=== PATIENT | male | born 1960 | race Caucasian/White ===

== ENCOUNTER 2021-01-23 15:42 | Outpatient (REF) | payer OTHER, SELFPAY ==
[2021-01-23 16:32] LABS: Glucose Urine UA >=1000 MG/DL (NEG); Leukocyte Esterase Urine NEG (NEG); Nitrite Urine POS (NEG); PH 5.5 (5.0-8.0); Specific Gravity - Urine 1.025 (1.005-1.025); UACC Culture Trigger YES; Urine Blood 1+ (NEG); Urine Ketones NEG (NEG); Urine Protein TRACE MG/DL (NEG-TRACE)
[2021-01-23 16:33] LABS: Appearance Urine CLEAR; Color Urine YELLOW
[2021-01-23 16:40] LABS: Bacteria Urine 2+ /LPF; RBC Urine 0-2 /HPF (0); WBC Urine 0 /HPF (0-4)
== END 2021-01-23 15:43 | disposition home or self-care (01) ==
LOC: HO.LAB 15:42
PROVIDERS: PCP Internal Medicine; Visit Provider Internal Medicine
DX: R30.0 Dysuria (principal)
CPT/HCPCS: 81001; 81003; 87086; 87088

== ENCOUNTER 2021-07-12 08:10 | Outpatient (REF) | payer OTHER, SELFPAY ==
[2021-07-12 08:31] LABS: MANUAL DIFF FLAG NO
[2021-07-12 09:00] LABS: Basophils Absolute Auto 0.1 X10*3/uL (0.0-0.2); Basophils Percent Auto 0.8 % (0-2); Eosinophils Absolute Auto 0.3 X10*3/uL (0.0-0.4); Eosinophils Percent Auto 2.6 % (0-4); Hemoglobin 14.7 g/dl (14.0-18.0); Imm Gran Abs Auto 0.04 X10*3/uL (0.00-0.03); Imm Gran Pct Auto 0.4 % (0.0-0.4); Lymphocytes Absolute Auto 2.9 X10*3/uL (1.2-4.9); Lymphocytes Percent Auto 29.8 % (20-40); Mean Corpuscular HGB Conc 34.2 g/dl (31.0-36.0); Mean Corpuscular Hemoglobin 29.7 pg (27.0-33.0); Mean Corpuscular Volume 86.9 fL (80-98); Mean Platelet Volume 10.2 fL (9.4-12.4); Monocytes Absolute Auto 0.7 X10*3/uL (0.1-1.2); Monocytes Percent Auto 6.8 % (2-11); Neutrophils Absolute Auto 5.7 X10*3/uL (2.0-8.3); Neutrophils Percent Auto 59.6 % (45-73); Platelet Count 405 X10*3/uL (160-400); Red Blood Count 4.95 X10*6/uL (4.60-5.80); Red Cell Distribution Width 11.7 % (11.0-16.0); White Blood Count 9.6 X10*3/uL (4.8-10.8)
[2021-07-12 10:14] LABS: Alanine Aminotransferase 29 U/L (0-40); Albumin Level 4.3 g/dL (3.5-5.0); Alkaline Phosphatase 96 U/L (39-117); Anion Gap 12 (12-20); Aspartate Amino Transferase 15 U/L (5-37); Bilirubin Total 0.3 mg/dL (0.0-1.0); Blood Urea Nitrogen 9 mg/dL (9-16); Calcium 9.7 mg/dL (8.4-10.2); Carbon Dioxide 28 mmol/L (22-29); Chloride 100 mmol/L (96-108); Cholesterol 273 mg/dL; Estimated Glomerular Filt Rate > 60; Glucose Fasting 321 mg/dL (60-99); HDL Cholesterol 43 mg/dL; LDL Cholesterol Calculated 192 mg/dl; Potassium 4.6 mmol/L (3.3-5.1); Sodium 135 mmol/L (135-145); Triglycerides 194 mg/dL
== END 2021-07-12 08:11 | disposition home or self-care (01) ==
LOC: HO.LAB 08:10
PROVIDERS: PCP Internal Medicine; Visit Provider Internal Medicine
DX: Z00.00 Encounter for general adult medical examination without abnormal findings (principal); E11.9 Type 2 diabetes mellitus without complications
CPT/HCPCS: 36415; 80053; 80061; 85025

== ENCOUNTER 2021-08-20 12:27 | Inpatient (IN) | payer OTHER, SELFPAY ==
--- NOTE | ~2021-08-20 | CT_ITS ---
EXAMINATION: CT ANGIOGRAM OF THE CHEST WITH AND WITHOUT CONTRAST (CT PULMONARY ANGIOGRAM FOR PE) CLINICAL INFORMATION: Reason for Exam Covid pneumonia r/o pe COMPARISON: Chest x-ray 08/20/2021 TECHNIQUE: Prior to contrast administration, noncontrast localization images were obtained. Subsequently, multidetector volumetric imaging was performed from the thoracic inlet to below the diaphragms following the administration of 65 mL Omnipaque 350 intravenous contrast. No contrast reaction reported Sagittal, coronal, and MIP oblique sagittal reformatted images were obtained on the CT workstation, uploaded to PACS, and reviewed. This CT examination was performed using dose optimization techniques as appropriate, variously including the following: *Automated exposure control *Adjustment of mA and/or kV according to patient size (this includes techniques or standardized protocols for targeted exams where dose is matched to indication/reason for exam; i.e. extremities or head) *Use of iterative reconstruction technique Total exam dose-length product 445 mGy-cm FINDINGS: QUALITY OF STUDY/CONTRAST BOLUS: Satisfactory. PULMONARY ARTERIES: No central or segmental pulmonary emboli. THORACIC AORTA: No aneurysm or dissection. LUNG: There is extensive multifocal airspace opacities that have a crazy paving pattern consistent with history of Covid positive. There is a smooth bordered pleural-based nodule along the major fissure in the left lung measuring 9 x 6 mm. Axial image 30/62 series 6, sagittal image 31/128 series 9. This is likely an intrafissural lymph node. PLEURA: No pleural effusion or pneumothorax. MEDIASTINUM: Heart size is normal. No pericardial effusion. Moderate volume of coronary artery calcifications. There is borderline to mildly enlarged lymph nodes in the mediastinum and [place]. Borderline enlarged lymph nodes in the pretracheal retrovascular space, subcarina and AP window. There are larger lymph nodes present in the bilateral hilar regions. Largest lymph nodes measuring up to a diameter about 1.5 cm. Lymph nodes are likely reactive to the airspace disease. No evidence of septal bowing or right heart strain. CHEST WALL/AXILLA: No axillary or internal mammary lymphadenopathy. OSSEOUS STRUCTURES: No acute or suspicious osseous abnormality. UPPER ABDOMEN: Unremarkable. No reflux of contrast into the hepatic veins to suggest elevated right heart pressures. CT/CT angio chest PE protocol IMPRESSION: 1. No evidence of pulmonary embolism. 2. Multifocal airspace disease consistent with history of Covid positive. Mediastinal and hilar lymphadenopathy which is likely reactive. Probable intrafissural lymph node in the left lung as well. Consider follow-up CAT scan in 3 months to assess the left lung nodule. 2017 Fleischner Society Recommendations for Lung Nodule(s): Follow-Up based on size (average of long- and short-axis diameters). Use most suspicious nodule for followup. Single Solid lung nodule > 8 mm: Consider non-contrast Chest CT at 3 months, PET/CT, or tissue sampling. These guidelines do not apply to patients younger than 35 years, immunocompromised patients, and patients with cancer. F/u in patients with significant comorbidities as clinically warranted. For lung cancer screening, adhere to Lung-RADS guidelines. Reference: Radiology. 2017 [place]; 284(1):228-243 VTE: Negative.
--- NOTE | ~2021-08-20 | XR_ITS ---
EXAMINATION: XR chest 1V CLINICAL INFORMATION: Shortness of breath COMPARISON: None TECHNIQUE: XR chest 1V Tubes and lines: None Lungs and pleura: Diffuse increased interstitial lung marking and peribronchial cuffing might be a small airway disease such as bronchiolitis or interstitial pneumonitis, versus interstitial lung disease versus interstitial edema. No dense focal consolidation pneumonia. Heart and mediastinum: The mediastinum is within normal limits.. Bones/soft tissue: Skeletal structures included are normal for patient's age. XR/XR chest 1V IMPRESSION: Diffuse increased interstitial lung marking and peribronchial cuffing might be a small airway disease such as bronchiolitis or interstitial pneumonitis, versus interstitial lung disease versus interstitial edema. No dense focal consolidation pneumonia. No significant dense lobar consolidation lobar pneumonia or pleural effusion present.
[2021-08-20 13:24] VITALS: BP 113/81; PULSE 123; RESP 18; TEMP 36.8; O2SAT 90; BMI 44.2
--- NOTE | 2021-08-20 17:49 | ECG_ITS ---
Test Reason : SOB Blood Pressure : / mmHG Vent. Rate : 128 BPM Atrial Rate : 128 BPM P-R Int : 154 ms QRS Dur : 078 ms QT Int : 286 ms P-R-T Axes : 035 -06 033 degrees QTc Int : 417 ms Sinus tachycardia Low voltage QRS Nonspecific ST abnormality Abnormal ECG When compared with ECG of 09-NOV-2018 15:20, Vent. rate has increased BY 54 BPM Nonspecific T wave abnormality no longer evident in Anterior leads Nonspecific ST abnormality is new Referred By: Torrie Potter Electronically Signed By:DAIJA CARRIZALES MD
--- NOTE | 2021-08-20 18:27 | ED.SOB ---
HPI - SOB/Dyspnea General Chief Complaint: Dyspnea Stated Complaint: covid + , diff breathing Time Seen by Provider: 08/20/21 17:48 Source: patient Mode of arrival: ambulatory Limitations: no limitations History of Present Illness HPI Narrative: Patient with history of hypertension no known lung condition not vaccinated against COVID-19 been sick for last 10 days tested positive for COVID 8 days ago been getting more short of breath for last 4 days was saturating 90% at room air on arrival poor oral intake feel weak and tired tachycardic on arrival with heart rate of 123 no loss of taste sensation dry cough mostly feels very shaky and dizzy Related Data Home Medications Medication Instructions Recorded Confirmed amlodipine 10 mg tablet 10 mg PO BEDTIME 08/20/21 08/20/21 metoprolol tartrate 100 mg tablet 100 mg PO BEDTIME 08/20/21 08/20/21 Allergies Allergy/AdvReac Type Severity Reaction Status Date / Time chlorthalidone Allergy Unknown Rash Verified 08/20/21 13:24 lisinopril Allergy Unknown Cough, Verified 08/20/21 13:24 hives No Known Allergies Allergy Verified 08/20/21 13:24 Review of Systems Review of Systems: Yes all other systems are reviewed and are negative [facility] Past Medical History Medical History HTN (hypertension) Social History Social History Alcohol intake: never Patient Tobacco Use Status: Never used Tobacco Advance Directives: No Advance Directives Information Provided: No Physical Exam Vital Signs: Vital Signs: Last Vital Signs Temp 97.9 F 08/21/21 00:00 Pulse 113 H 08/21/21 00:00 Resp 20 08/21/21 00:00 BP 116/72 08/21/21 00:00 Pulse Ox 92 08/21/21 00:00 Body Mass Index 44.2 Appearance: Alert. Oriented X3. No acute distress. Dry cough looks exhausted Eyes: No pallor or icterus ENT: Pharynx normal. Oral Mucosa moist Neck: Normal inspection. Neck supple. CVS: Normal heart rate and rhythm. Pulses normal. Respiratory: No respiratory distress. Equal air entry bilateral, no wheezing/rales/rhonchi Abdomen: Soft and nontender. Bowel sounds are present, no mass palpable, Skin: Skin warm and dry. Normal skin color. Normal skin turgor. Extremities: No lower extremity edema. No calf tenderness Neuro: Oriented X 3. MDM - SOB/Dyspnea Lab Data Attestation: I reviewed the patient's lab results. Result diagrams: 08/20/21 19:12 08/20/21 19:09 Labs: Lab Results 08/20/21 08/20/21 08/20/21 Range/Units 19:09 19:09 19:11 WBC (4.8-10.8) X10*3/uL RBC (4.60-5.80) X10*6/uL Hgb (14.0-18.0) g/dl Hct (42.0-52.0) % MCV (80.0-98.0) fL MCH (27.0-33.0) pg MCHC (31.0-36.0) g/dl RDW (11.0-16.0) % Plt Count (160-400) X10*3/uL MPV (9.4-12.4) fL Immature Gran % (Auto) Neut % (Auto) Lymph % (Auto) [place] % (Auto) Eos % (Auto) Baso % (Auto) Lymph # (Auto) [place] # (Auto) Eos # (Auto) Baso # (Auto) Abs Immat Gran (auto) Absolute Neuts (auto) Absolute Nucleated RBC (0.0-0.012) X10*3/uL Nucleated RBC % (auto) (0.0-0.2) /100WBC Neutrophils % (Manual) (45-73) % Band Neutrophils % (3-5) % Lymphocytes % (Manual) (20-40) % Atypical Lymphs % (Man) (0-6) % Monocytes % (Manual) (2-11) % Abs Neuts (Manual) (2.0-8.3) X10*3/uL Lymphocytes # (Manual) (1.2-4.9) X10*3/uL Atyp Lymphs # (Manual) x10*3/uL Monocytes # (Manual) (0.1-1.2) X10*3/uL Toxic Vacuolation Platelet Estimate (NORMAL) Large Platelets Plt Morphology Comment RBC Morphology Polychromasia /OIF Shawn Cells /OIF Smear Tech's Comments D-Dimer High Sensitivty 213 NG/ML VBG pH (7.32-7.43) VBG pCO2 mmHg VBG pO2 mmHg VBG HCO3 (22-26) mmol/L VBG O2 Saturation % VBG Base Excess mmol/L Sodium 132 L (135-145) mmol/L Potassium 4.5 (3.3-5.1) mmol/L Chloride 97 (96-108) mmol/L Carbon Dioxide 21 L (22-29) mmol/L Anion Gap 19 (12-20) BUN 15 D (9-16) mg/dL Creatinine 1.00 (0.5-1.4) mg/dL Estim Creat Clear Calc 88.0 Estimated GFR > 60 Random Glucose 277 H (60-115) mg/dL Lactic Acid 1.9 (0.5-2.0) mmol/L Calcium 8.7 D (8.4-10.2) mg/dL Magnesium 2.3 (1.6-2.6) mg/dL Ferritin 2431 H (20-250) ng/mL Total Bilirubin 0.4 (0.0-1.0) mg/dL Direct Bilirubin 0.2 (0.0-0.5) mg/dL AST 36 D (5-37) U/L ALT 35 (0-40) U/L Alkaline Phosphatase 69 D (39-117) U/L Lactate Dehydrogenase 423 H (118-273) U/L Total Creatine Kinase 43 (38-174) U/L Troponin I High Sens (<3.5-35.0) ng/L C-Reactive Protein 5.46 H (< or = 0.50) mg/dL B-Natriuretic Peptide (<100) pg/mL Total Protein 7.0 (6.5-8.0) g/dL Albumin 3.9 (3.5-5.0) g/dL Lipase 34 (8-78) U/L COVID-19 (LEONEL) (Negative) COVID-19 Clin Com 08/20/21 08/20/21 08/20/21 Range/Units 19:11 19:12 19:12 WBC 8.3 (4.8-10.8) X10*3/uL RBC 5.68 (4.60-5.80) X10*6/uL Hgb 16.6 (14.0-18.0) g/dl Hct 48.6 (42.0-52.0) % MCV 85.6 (80.0-98.0) fL MCH 29.2 (27.0-33.0) pg MCHC 34.2 (31.0-36.0) g/dl RDW 11.6 (11.0-16.0) % Plt Count 369 (160-400) X10*3/uL MPV 10.0 (9.4-12.4) fL Immature Gran % (Auto) Cancelled Neut % (Auto) Cancelled Lymph % (Auto) Cancelled [place] % (Auto) Cancelled Eos % (Auto) Cancelled Baso % (Auto) Cancelled Lymph # (Auto) Cancelled [place] # (Auto) Cancelled Eos # (Auto) Cancelled Baso # (Auto) Cancelled Abs Immat Gran (auto) Cancelled Absolute Neuts (auto) Cancelled Absolute Nucleated RBC 0.000 (0.0-0.012) X10*3/uL Nucleated RBC % (auto) 0.0 (0.0-0.2) /100WBC Neutrophils % (Manual) 76 H (45-73) % Band Neutrophils % 1 L (3-5) % Lymphocytes % (Manual) 10 L (20-40) % Atypical Lymphs % (Man) 6 (0-6) % Monocytes % (Manual) 7 (2-11) % Abs Neuts (Manual) 6.4 (2.0-8.3) X10*3/uL Lymphocytes # (Manual) 0.8 L (1.2-4.9) X10*3/uL Atyp Lymphs # (Manual) 0.5 x10*3/uL Monocytes # (Manual) 0.6 (0.1-1.2) X10*3/uL Toxic Vacuolation PRESENT Platelet Estimate SLIGHTLY INCREASED (NORMAL) Large Platelets PRESENT Plt Morphology Comment NOTED RBC Morphology NOTED Polychromasia 1+ (0-2) /OIF Shawn Cells 1+ (0-2) /OIF Smear Tech's Comments MANUAL DIFF D-Dimer High Sensitivty NG/ML VBG pH (7.32-7.43) VBG pCO2 mmHg VBG pO2 mmHg VBG HCO3 (22-26) mmol/L VBG O2 Saturation % VBG Base Excess mmol/L Sodium (135-145) mmol/L Potassium (3.3-5.1) mmol/L Chloride (96-108) mmol/L Carbon Dioxide (22-29) mmol/L Anion Gap (12-20) BUN (9-16) mg/dL Creatinine (0.5-1.4) mg/dL Estim Creat Clear Calc Estimated GFR Random Glucose (60-115) mg/dL Lactic Acid (0.5-2.0) mmol/L Calcium (8.4-10.2) mg/dL Magnesium (1.6-2.6) mg/dL Ferritin (20-250) ng/mL Total Bilirubin (0.0-1.0) mg/dL Direct Bilirubin (0.0-0.5) mg/dL AST (5-37) U/L ALT (0-40) U/L Alkaline Phosphatase (39-117) U/L Lactate Dehydrogenase (118-273) U/L Total Creatine Kinase (38-174) U/L Troponin I High Sens 3.9 (<3.5-35.0) ng/L C-Reactive Protein (< or = 0.50) mg/dL B-Natriuretic Peptide 15 (<100) pg/mL Total Protein (6.5-8.0) g/dL Albumin (3.5-5.0) g/dL Lipase (8-78) U/L COVID-19 (LEONEL) (Negative) COVID-19 Clin Com 08/20/21 08/20/21 Range/Units 19:12 19:20 WBC (4.8-10.8) X10*3/uL RBC (4.60-5.80) X10*6/uL Hgb (14.0-18.0) g/dl Hct (42.0-52.0) % MCV (80.0-98.0) fL MCH (27.0-33.0) pg MCHC (31.0-36.0) g/dl RDW (11.0-16.0) % Plt Count (160-400) X10*3/uL MPV (9.4-12.4) fL Immature Gran % (Auto) Neut % (Auto) Lymph % (Auto) [place] % (Auto) Eos % (Auto) Baso % (Auto) Lymph # (Auto) [place] # (Auto) Eos # (Auto) Baso # (Auto) Abs Immat Gran (auto) Absolute Neuts (auto) Absolute Nucleated RBC (0.0-0.012) X10*3/uL Nucleated RBC % (auto) (0.0-0.2) /100WBC Neutrophils % (Manual) (45-73) % Band Neutrophils % (3-5) % Lymphocytes % (Manual) (20-40) % Atypical Lymphs % (Man) (0-6) % Monocytes % (Manual) (2-11) % Abs Neuts (Manual) (2.0-8.3) X10*3/uL Lymphocytes # (Manual) (1.2-4.9) X10*3/uL Atyp Lymphs # (Manual) x10*3/uL Monocytes # (Manual) (0.1-1.2) X10*3/uL Toxic Vacuolation Platelet Estimate (NORMAL) Large Platelets Plt Morphology Comment RBC Morphology Polychromasia /OIF [place] Cells /OIF Smear Tech's Comments D-Dimer High Sensitivty NG/ML VBG pH 7.39 (7.32-7.43) VBG pCO2 36 mmHg VBG pO2 35 mmHg VBG HCO3 23 (22-26) mmol/L VBG O2 Saturation 48.0 % VBG Base Excess -1.3 mmol/L Sodium (135-145) mmol/L Potassium (3.3-5.1) mmol/L Chloride (96-108) mmol/L Carbon Dioxide (22-29) mmol/L Anion Gap (12-20) BUN (9-16) mg/dL Creatinine (0.5-1.4) mg/dL Estim Creat Clear Calc Estimated GFR Random Glucose (60-115) mg/dL Lactic Acid (0.5-2.0) mmol/L Calcium (8.4-10.2) mg/dL Magnesium (1.6-2.6) mg/dL Ferritin (20-250) ng/mL Total Bilirubin (0.0-1.0) mg/dL Direct Bilirubin (0.0-0.5) mg/dL AST (5-37) U/L ALT (0-40) U/L Alkaline Phosphatase (39-117) U/L Lactate Dehydrogenase (118-273) U/L Total Creatine Kinase (38-174) U/L Troponin I High Sens (<3.5-35.0) ng/L C-Reactive Protein (< or = 0.50) mg/dL B-Natriuretic Peptide (<100) pg/mL Total Protein (6.5-8.0) g/dL Albumin (3.5-5.0) g/dL Lipase (8-78) U/L COVID-19 (LEONEL) Positive A (Negative) COVID-19 Clin Com See Note Imaging Data CT scan - chest: My impression: CT/CT angio chest PE protocol IMPRESSION: ? 1. No evidence of pulmonary embolism. 2. Multifocal airspace disease consistent with history of Covid positive. Mediastinal and hilar lymphadenopathy which is likely reactive. Probable intrafissural lymph node in the left lung as well. Consider follow-up CAT scan in 3 months to assess the left lung nodule. ? 2017 Fleischner Society Recommendations for Lung Nodule(s): Follow-Up based on size (average of long- and short-axis diameters). Use most suspicious nodule for followup. ? Single Solid lung nodule > 8 mm:? Consider? non-contrast Chest CT at 3 months, PET/CT, or tissue sampling.? ? These guidelines do not apply to patients younger than 35 years, immunocompromised patients, and patients with cancer. F/u in patients with significant comorbidities as clinically warranted. For lung cancer screening, adhere to Lung-RADS guidelines.? ECG Data Attestation: I personally reviewed and interpreted this ECG as follows: Interpretation: Sinus tachycardia with heart rate of 128 beats per minute normal axis no acute ischemic changes impression sinus tachycardia Discharge Plan Discharge Clinical Impression: Pneumonia due to COVID-19 virus, Hypoxia Patient Disposition: Admitted As Inpatient
[2021-08-20 18:50] VITALS: BP 143/92; PULSE 124; RESP 16; O2SAT 94
[2021-08-20 19:26] LABS: VBG Base Excess -1.3 mmol/L; VBG HCO3 23 mmol/L (22-26); VBG pCO2 36 mmHg; VBG pH 7.39 (7.32-7.43); VBG pO2 35 mmHg
[2021-08-20 19:27] LABS: Venous Blood Gas Refer to POC result
[2021-08-20 19:27] LABS: Hematocrit 48.6 % (42.0-52.0); Hemoglobin 16.6 g/dl (14.0-18.0); Mean Corpuscular HGB Conc 34.2 g/dl (31.0-36.0); Mean Corpuscular Hemoglobin 29.2 pg (27.0-33.0); Mean Corpuscular Volume 85.6 fL (80.0-98.0); Platelet Count 369 X10*3/uL (160-400); Red Blood Count 5.68 X10*6/uL (4.60-5.80); Red Cell Distribution Width 11.6 % (11.0-16.0); White Blood Count 8.3 X10*3/uL (4.8-10.8)
[2021-08-20 19:28] LABS: D Dimer High Sensitivity 213 NG/ML
[2021-08-20 19:34] LABS: Lactic Acid 1.9 mmol/L (0.5-2.0)
[2021-08-20 19:35] LABS: COVID-19 Test Positive (Negative)
[2021-08-20 19:39] LABS: Alanine Aminotransferase 35 U/L (0-40); Albumin Level 3.9 g/dL (3.5-5.0); Alkaline Phosphatase 69 U/L (39-117); Anion Gap 19 (12-20); Aspartate Amino Transferase 36 U/L (5-37); Bilirubin Direct 0.2 mg/dL (0.0-0.5); Bilirubin Total 0.4 mg/dL (0.0-1.0); Blood Urea Nitrogen 15 mg/dL (9-16); C Reactive Protein 5.46 mg/dL (< or = 0.50); Calcium 8.7 mg/dL (8.4-10.2); Carbon Dioxide 21 mmol/L (22-29); Chloride 97 mmol/L (96-108); Estimated Glomerular Filt Rate > 60; Glucose Random 277 mg/dL (60-115); Lipase 34 U/L (8-78); Magnesium 2.3 mg/dL (1.6-2.6); Potassium 4.5 mmol/L (3.3-5.1); Sodium 132 mmol/L (135-145)
[2021-08-20 19:42] LABS: B Type Natriuretic Peptide 15 pg/mL (<100)
[2021-08-20 19:43] LABS: Troponin-I High Sensitivity 3.9 ng/L (<3.5-35.0)
[2021-08-20 19:50] LABS: Lactate Dehydrogenase 423 U/L (118-273)
[2021-08-20 19:59] LABS: SLIDE REVIEW MANUAL DIFF
[2021-08-20 20:02] LABS: Atypical Lymph Absolute Manual 0.5 x10*3/uL; Atypical Lymphs Percent Manual 6 % (0-6); Band Neutrophils Percent 1 % (3-5); Lymphocytes Absolute Manual 0.8 X10*3/uL (1.2-4.9); Lymphocytes Percent Manual 10 % (20-40); Monocytes Absolute Manual 0.6 X10*3/uL (0.1-1.2); Monocytes Percent Manual 7 % (2-11); Neutrophils Absolute Manual 6.4 X10*3/uL (2.0-8.3); Neutrophils Percent Manual 76 % (45-73)
[2021-08-20 20:03] LABS: Burr Cells 1+ (0-2) /OIF; Large Platelet PRESENT; Platelet Estimate SLIGHTLY INCREASED (NORMAL); Platelet Morphology Comment NOTED; Polychromasia 1+ (0-2) /OIF; RBC Morphology NOTED
[2021-08-20 20:06] LABS: Toxic Vacuolation PRESENT
[2021-08-20] MEDS: iohexoL 350 MG/ML 100 ML INFUS..BTL 65 ML IV (20:22)
[2021-08-20 20:36] LABS: Ferritin 2431 ng/mL (20-250)
[2021-08-20 21:21] VITALS: BP 143/92; PULSE 111; O2SAT 90
[2021-08-20] MEDS: dexAMETHasone sod phosphate 10 MG/ML VIAL IVPUSH (21:27)
[2021-08-20] MEDS: 0.9 % Sodium Chloride 1,000 ML 999 ML IVCONT (21:28)
[2021-08-20] MEDS: cefTRIAXone sodium 1 GM in 0.9 % Sodium Chloride 50 ML IV (22:35)
[2021-08-20 22:55] VITALS: BP 135/89; PULSE 109; RESP 15; O2SAT 95
[2021-08-20] MEDS: Azithromycin 500 MG in 0.9 % Sodium Chloride 250 ML 125 MG IV (22:56)
--- NOTE | 2021-08-20 23:05 | PM.IMHP ---
History of Present Illness Date of Service: 08/20/21 Chief Complaint: SOB 66-year-old male with a past medical history of hypertension presented to the hospital with a chief complaint of shortness of breath and generalized weakness. Patient reported that about a week ago he was diagnosed with COVID-19; mentioned that he was not COVID vaccinated. Since he was diagnosed with the COVID 19 mentioned that he has been having shortness of breath which has been gradually worsening and also complains of generalized weakness; denies any loss of sense of smell of; mentions he had metabolic testing is wall; denies any nausea vomiting or diarrhea. Denies any cough or sputum production. Denies any chest pain palpitations lightheadedness or dizziness. Review of all other systems is negative except mentioned above ER course: Per ER team patient saturating 92% on 4 L of oxygen; CT chest showed no evidence of pulmonary embolism but noted multifocal airspace disease consistent with COVID positive. Hilar lymphadenopathy likely reactive. Given ceftriaxone azithromycin. Admitted for further management. [facility] Medical History HTN (hypertension) Pertinent family history: Reviewed Social History Alcohol intake: never Patient Tobacco Use Status: Never used Tobacco Advance Directives: No Advance Directives Information Provided: No Meds Allergies Allergy/AdvReac Type Severity Reaction Status Date / Time chlorthalidone Allergy Unknown Rash Verified 08/20/21 13:24 lisinopril Allergy Unknown Cough, Verified 08/20/21 13:24 hives No Known Allergies Allergy Verified 08/20/21 13:24 Active Medications: Current Medications Dexamethasone (Dexamethasone 6 Mg Tablet) 6 mg PO DAILY ERWIN Azithromycin 500 mg/ Sodium (Chloride) 250 mls @ 125 mls/hr IV ONCE ONE Stop: 08/20/21 23:19 Last Admin: 08/20/21 22:56 Dose: 125 mls/hr Documented by: Pharmacy Consult (Consult Rx Perform Med Rec) 1 each MISCELLANE ONCE PRN PRN Reason: Consult order Home Medications Medication Instructions Recorded Confirmed Last Taken Type amlodipine 10 mg tablet 10 mg PO BEDTIME 08/20/21 08/20/21 08/19/21 History metoprolol tartrate 100 mg tablet 100 mg PO BEDTIME 08/20/21 08/20/2108/19/21 History Physical Exam Vital Signs and Narrative: Vital Signs: Last Vital Signs Temp 98.3 F 08/20/21 13:24 Pulse 109 H 08/20/21 22:55 Resp 15 08/20/21 22:55 BP 135/89 08/20/21 22:55 Pulse Ox 95 08/20/21 22:55 Body Mass Index 44.2 Gen: Appears be in no acute distress. Speaks in full sentences. On supplemental oxygen. HEENT: NCAT, Moist mucosa. Pulmonary: Coarse breath sounds, fair air entry CVS: Normal S1-S2 Abdomen: BS+, Soft, Nontender Extremities: Warm well perfused Neuro: Alert and awake. Results Labs CBC and Chem 7: 08/21/21 05:38 08/21/21 05:38 Labs: Laboratory Results - last 24 hr 08/20/21 08/20/21 08/20/21 19:09 19:09 19:11 MCV MCH MCHC RDW Plt Count MPV Immature Gran % (Auto) Neut % (Auto) Lymph % (Auto) [place] % (Auto) Eos % (Auto) Baso % (Auto) Lymph # (Auto) [place] # (Auto) Eos # (Auto) Baso # (Auto) Abs Immat Gran (auto) Absolute Neuts (auto) Absolute Nucleated RBC Nucleated RBC % (auto) Neutrophils % (Manual) Band Neutrophils % Lymphocytes % (Manual) Atypical Lymphs % (Man) Monocytes % (Manual) Abs Neuts (Manual) Lymphocytes # (Manual) Atyp Lymphs # (Manual) Monocytes # (Manual) Toxic Vacuolation Platelet Estimate Large Platelets Plt Morphology Comment RBC Morphology Polychromasia Shawn Cells Smear Tech's Comments D-Dimer High Sensitivty 213 VBG pH VBG pCO2 VBG pO2 VBG HCO3 VBG O2 Saturation VBG Base Excess Anion Gap 19 Estim Creat Clear Calc 88.0 Estimated GFR > 60 Random Glucose 277 H Lactic Acid 1.9 Calcium 8.7 D Magnesium 2.3 Ferritin 2431 H Total Bilirubin 0.4 Direct Bilirubin 0.2 AST 36 D ALT 35 Alkaline Phosphatase 69 D Lactate Dehydrogenase 423 H Total Creatine Kinase 43 Troponin I High Sens C-Reactive Protein 5.46 H B-Natriuretic Peptide Total Protein 7.0 Albumin 3.9 Lipase 34 COVID-19 (LEONEL) COVID-19 Clin Com 08/20/21 08/20/2121 19:11 19:12 19:12 MCV 85.6 MCH 29.2 MCHC 34.2 RDW 11.6 Plt Count 369 MPV 10.0 Immature Gran % (Auto) Cancelled Neut % (Auto) Cancelled Lymph % (Auto) Cancelled [place] % (Auto) Cancelled Eos % (Auto) Cancelled Baso % (Auto) Cancelled Lymph # (Auto) Cancelled [place] # (Auto) Cancelled Eos # (Auto) Cancelled Baso # (Auto) Cancelled Abs Immat Gran (auto) Cancelled Absolute Neuts (auto) Cancelled Absolute Nucleated RBC 0.000 Nucleated RBC % (auto) 0.0 Neutrophils % (Manual) 76 H Band Neutrophils % 1 L Lymphocytes % (Manual) 10 L Atypical Lymphs % (Man) 6 Monocytes % (Manual) 7 Abs Neuts (Manual) 6.4 Lymphocytes # (Manual) 0.8 L Atyp Lymphs # (Manual) 0.5 Monocytes # (Manual) 0.6 Toxic Vacuolation PRESENT Platelet Estimate SLIGHTLY INCREASED Large Platelets PRESENT Plt Morphology Comment NOTED RBC Morphology NOTED Polychromasia 1+ (0-2) [place] Cells 1+ (0-2) Smear Tech's Comments MANUAL DIFF D-Dimer High Sensitivty VBG pH VBG pCO2 VBG pO2 VBG HCO3 VBG O2 Saturation VBG Base Excess Anion Gap Estim Creat Clear Calc Estimated GFR Random Glucose Lactic Acid Calcium Magnesium Ferritin Total Bilirubin Direct Bilirubin AST ALT Alkaline Phosphatase Lactate Dehydrogenase Total Creatine Kinase Troponin I High Sens 3.9 C-Reactive Protein B-Natriuretic Peptide 15 Total Protein Albumin Lipase COVID-19 (LEONEL) COVID-19 Clin Com 08/20/21 08/20/21 19:12 19:20 MCV MCH MCHC RDW Plt Count MPV Immature Gran % (Auto) Neut % (Auto) Lymph % (Auto) [place] % (Auto) Eos % (Auto) Baso % (Auto) Lymph # (Auto) [place] # (Auto) Eos # (Auto) Baso # (Auto) Abs Immat Gran (auto) Absolute Neuts (auto) Absolute Nucleated RBC Nucleated RBC % (auto) Neutrophils % (Manual) Band Neutrophils % Lymphocytes % (Manual) Atypical Lymphs % (Man) Monocytes % (Manual) Abs Neuts (Manual) Lymphocytes # (Manual) Atyp Lymphs # (Manual) Monocytes # (Manual) Toxic Vacuolation Platelet Estimate Large Platelets Plt Morphology Comment RBC Morphology Polychromasia [place] Cells Smear Tech's Comments D-Dimer High Sensitivty VBG pH 7.39 VBG pCO2 36 VBG pO2 35 VBG HCO3 23 VBG O2 Saturation 48.0 VBG Base Excess -1.3 Anion Gap Estim Creat Clear Calc Estimated GFR Random Glucose Lactic Acid Calcium Magnesium Ferritin Total Bilirubin Direct Bilirubin AST ALT Alkaline Phosphatase Lactate Dehydrogenase Total Creatine Kinase Troponin I High Sens C-Reactive Protein B-Natriuretic Peptide Total Protein Albumin Lipase COVID-19 (LEONEL) Positive A COVID-19 Clin Com See Note Imaging Radiologist's Impressions: Impressions Chest X-Ray 08/20/21 17:19 IMPRESSION: Diffuse increased interstitial lung marking and peribronchial cuffing might be a small airway disease such as bronchiolitis or interstitial pneumonitis, versus interstitial lung disease versus interstitial edema. No dense focal consolidation pneumonia. No significant dense lobar consolidation lobar pneumonia or pleural effusion present. Chest CTA 08/20/21 18:32 IMPRESSION: 1. No evidence of pulmonary embolism. 2. Multifocal airspace disease consistent with history of Covid positive. Mediastinal and hilar lymphadenopathy which is likely reactive. Probable intrafissural lymph node in the left lung as well. Consider follow-up CAT scan in 3 months to assess the left lung nodule. 2017 Fleischner Society Recommendations for Lung Nodule(s): Follow-Up based on size (average of long- and short-axis diameters). Use most suspicious nodule for followup. Single Solid lung nodule > 8 mm: Consider non-contrast Chest CT at 3 months, PET/CT, or tissue sampling. These guidelines do not apply to patients younger than 35 years, immunocompromised patients, and patients with cancer. F/u in patients with significant comorbidities as clinically warranted. For lung cancer screening, adhere to Lung-RADS guidelines. Reference: Radiology. 2017 Mar; 284(1):228-243 VTE: Negative. Assessment and Plan (1) Pneumonia due to COVID-19 virus: Status: Acute (2) Hypoxia: Status: Acute 61-year-old male with a past medical history of hypertension presented to the hospital with a chief complaint of shortness of breath. Patient was diagnosed COVID-19 about a week ago. Noted to have COVID-[address] scan. Admitted for further management. Acute hypoxic respiratory failure: In the setting of COVID-19 pneumonia. Patient on supplemental oxygen at 4 L. Not in respiratory distress. Albuterol inhaler p.r.n.. COVID-19 pneumonia: Continue ceftriaxone azithromycin. Continue dexamethasone Infectious Disease consult for further recommendations Hyperglycemia: likely steroid induced; hba1c pending; insulin sliding scale. History of hypertension: Hold home amlodipine. Continue home metoprolol. Monitor blood pressure closely. Pulmonary nodule: Outpatient follow-up with the PCP for surveillance in CT scans. DVT prophylaxis: Lovenox Code status: Full code Quality Stroke Does the patient have a stroke diagnosis?: No VTE Prior VTE?: No VTE Risk Level:: Medical - moderate - high VTE Device Contraindication: Treatment Not Indicated VTE Drug Contraindication: N/A - Med Ordered
[2021-08-21] VITALS (12 sets, daily range): BP systolic 116–142; BP diastolic 55–91; PULSE 82–133; RESP 15–22; TEMP 36.4–37; O2SAT 85–95
[2021-08-21] MEDS: Enoxaparin Sodium 40 MG/0.4 ML SYRINGE SUBCUT (01:32)
[2021-08-21] MEDS: 0.9 % Sodium Chloride Flush 3 ML SYRINGE IVFLUSH ×2 (01:33→10:26)
--- NOTE | 2021-08-21 05:30 | PC.NURSE ---
Pt disconnected from monitor by [facility] to allow the pt to ambulate to bathroom. Pt was instructed to ring upon return but did not. This RN to bedside to find patient laying in stretcher awake, alert and without distress noted. pt noted to be without NC in place as it had falled; O2 sat 88% on room air. Pt denies pain/discomfort at this time and although he acknowledges weakness he reports that he feels better than earlier but denies being at his baseline. Pt with 2LPM NC applied with an O2 saturation noted to be between 92-93%. Dr Hurd contacted via [facility] to relay results to determine if pt should be on more O2 via NC as pt previously on 4lPM since arrival; responded it is okay for the patient to remain at the 2lpm via NC
[2021-08-21 06:21] LABS: Hematocrit 43.2 % (42.0-52.0); Hemoglobin 14.7 g/dl (14.0-18.0); Mean Corpuscular Hemoglobin 29.2 pg (27.0-33.0); Mean Corpuscular Volume 85.9 fL (80.0-98.0); Platelet Count 367 X10*3/uL (160-400); Red Blood Count 5.03 X10*6/uL (4.60-5.80); Red Cell Distribution Width 11.7 % (11.0-16.0)
[2021-08-21 06:26] LABS: Anion Gap 18 (12-20); Blood Urea Nitrogen 14 mg/dL (9-16); Calcium 8.1 mg/dL (8.4-10.2); Carbon Dioxide 22 mmol/L (22-29); Chloride 99 mmol/L (96-108); Creatinine Clr Calc Pharmacy 90.7; Estimated Glomerular Filt Rate > 60; Glucose Random 373 mg/dL (60-115); Potassium 4.7 mmol/L (3.3-5.1); Sodium 134 mmol/L (135-145)
[2021-08-21 06:52] LABS: Estimated Average Glucose 321 mg/dL; Hemoglobin A1c % 12.8 %
[2021-08-21 07:33] LABS: Glucose, Whole Blood 328 mg/dL (60-115)
[2021-08-21] MEDS: Insulin Lispro 100 UNIT/ML 3 ML VIAL SUBCUT ×4 (07:41→22:11)
--- NOTE | 2021-08-21 07:52 | PC.NURSE ---
pt alert and oriented, skin pwd, respirations slightly increased anywhere from 18-22, ls clear, pt will be sating anywhere from 89-92% on 2l, sinus tach on the monitor ranges from 120-105, pt denies sob/pain pt is awaiting room assignment
--- NOTE | 2021-08-21 09:15 | PC.NURSE ---
pt's work of breathing starting to increase, sating at 88% on 2l, bumped the pt to 4l on the nasal cannual currently sating 92%, also called respiratory to notify then of this finding
[2021-08-21] MEDS: dexAMETHasone 6 MG TABLET PO (09:24)
--- NOTE | 2021-08-21 10:06 | MHC.CM.PN ---
Attempted to meet with patient in regards to discharge planning. Nursing care currently being provided. Will attempt to meet again. Continue to monitor for d/c needs.
--- NOTE | 2021-08-21 10:19 | PC.NURSE ---
Patients oxygen saturations 88-89% at 9l on a cooper placed on right side now at 94%. Dr. May aware patient is currently on right side and oxygen levels. Will continue to monitor.
[2021-08-21 12:23] LABS: Glucose, Whole Blood 315 mg/dL (60-115)
[2021-08-21] MEDS: Metoprolol Tartrate 100 MG TABLET PO (15:42)
[2021-08-21 17:07] LABS: Glucose, Whole Blood 368 mg/dL (60-115)
--- NOTE | 2021-08-21 17:07 | MHC.CM.PN ---
CM met with admitted patient with bed assignment pending. Pt is COVID positive from 08/14/21. No IMM necessary. No HCP on file. Education provided, patient declines at this time. Lives with and daughter. Uses on DME or services. D/C plan is home with services pending hospital course. /contact Dinah Barrett ([phone]). to provide transportation home. CM to follow for d/c needs.
--- NOTE | 2021-08-21 17:17 | HO.PM.IMPN ---
Subjective Subjective Date of Service: 08/21/21 Interval History: Seen in f/u for covid PNA, hypoxia, patient relates that he feels better, able to talk in full sentences, oxygen saturation is better Review of Systems +sob no fever Physical Exam Vital Signs: Vital Signs: Last Vital Signs Temp 97.9 F 08/21/21 13:00 Pulse 89 08/21/21 16:29 Resp 18 08/21/21 16:29 BP 119/55 L 08/21/21 16:29 Pulse Ox 93 08/21/21 16:29 Body Mass Index 44.2 Const: Other: General: AO X 3, no acute distress Resp: talking in full sentences CVS: S1,S2,RRR GI: no pain Skin: No rash Neuro: motor grossly intact Psych: appropriate affect Objective Data Active Medications Acetaminophen (Acetaminophen 325 Mg Tablet) 650 mg PO Q6H PRN PRN Reason: Pain, Mild (Pain Scale 1-3) Azithromycin (Azithromycin 500 Mg Tablet) 500 mg PO Q24H ERWIN Dexamethasone (Dexamethasone 6 Mg Tablet) 6 mg PO DAILY ON LICENSE OF [facility] Last Admin: 08/21/21 09:24 Dose: 6 mg Documented by: WILEY Dextrose (Dextrose 50 % 25 Gm/50 Ml Vial) 25 gm IVPUSH Q15M PRN; Protocol PRN Reason: per Hypoglycemia Standing Ord. Enoxaparin Sodium (Enoxaparin Sodium 40 Mg/0.4 Ml Syringe) 40 mg SUBCUT Q24H ON LICENSE OF [facility] Last Admin: 08/21/21 01:32 Dose: 40 mg Documented by: LYLE Glucose (Glucose Gel 15 Gm Gel..Gram.) 15 gm PO Q15M PRN; Protocol PRN Reason: per Hypoglycemia Standing Ord. Ceftriaxone Sodium 1 gm/ (Sodium Chloride) 50 mls @ 100 mls/hr IV Q24H ON LICENSE OF [facility] Insulin Human Lispro (Insulin Lispro 100 Unit/Ml 3 Ml Vial) 0 unit SUBCUT QIDACHS ON LICENSE OF [facility]; Protocol Last Admin: 08/21/21 17:06 Dose: 10 unit Documented by: WILEY Melatonin (Melatonin 3 Mg Tablet) 6 mg PO BEDTIME PRN PRN Reason: Insomnia Metoprolol Tartrate (Metoprolol Tartrate 100 Mg Tablet) 100 mg PO BEDTIME ON LICENSE OF [facility]; Protocol Last Admin: 08/21/21 15:42 Dose: 100 mg Documented by: WILEY Pharmacy Consult (Consult Rx Perform Med Rec) 1 each MISCELLANE ONCE PRN PRN Reason: Consult order Senna (Sennosides 8.6 Mg Tablet) 17.2 mg PO BEDTIME PRN PRN Reason: Constipation Sodium Chloride (0.9 % Sodium Chloride Flush 3 Ml Syringe) 3 ml IVFLUSH QSHIFT ERWIN Last Admin: 08/21/21 10:26 Dose: 3 ml Documented by: WILEY Labs CBC & Chem 7: 08/21/21 05:38 08/21/21 05:38 Labs: Laboratory Results - last 24 hr 08/20/21 08/20/21 08/20/21 19:09 19:09 19:11 MCV MCH MCHC RDW Plt Count MPV Immature Gran % (Auto) Neut % (Auto) Lymph % (Auto) Rogers % (Auto) Eos % (Auto) Baso % (Auto) Lymph # (Auto) Rogers # (Auto) Eos # (Auto) Baso # (Auto) Abs Immat Gran (auto) Absolute Neuts (auto) Absolute Nucleated RBC Nucleated RBC % (auto) Neutrophils % (Manual) Band Neutrophils % Lymphocytes % (Manual) Atypical Lymphs % (Man) Monocytes % (Manual) Abs Neuts (Manual) Lymphocytes # (Manual) Atyp Lymphs # (Manual) Monocytes # (Manual) Toxic Vacuolation Platelet Estimate Large Platelets Plt Morphology Comment RBC Morphology Polychromasia Gilberts Cells Smear Tech's Comments Smear Path Review D-Dimer High Sensitivty 213 VBG pH VBG pCO2 VBG pO2 VBG HCO3 VBG O2 Saturation VBG Base Excess Anion Gap 19 Estim Creat Clear Calc 88.0 Estimated GFR > 60 POC Glucose Random Glucose 277 H Estimat Average Glucose Hemoglobin A1c % Lactic Acid 1.9 Calcium 8.7 D Magnesium 2.3 Ferritin 2431 H Total Bilirubin 0.4 Direct Bilirubin 0.2 AST 36 D ALT 35 Alkaline Phosphatase 69 D Lactate Dehydrogenase 423 H Total Creatine Kinase 43 Troponin I High Sens C-Reactive Protein 5.46 H B-Natriuretic Peptide Total Protein 7.0 Albumin 3.9 Lipase 34 COVID-19 (LEONEL) COVID-19 Clin Com 08/20/21 08/20/21 08/20/21 19:11 19:12 19:12 MCV 85.6 MCH 29.2 MCHC 34.2 RDW 11.6 Plt Count 369 MPV 10.0 Immature Gran % (Auto) Cancelled Neut % (Auto) Cancelled Lymph % (Auto) Cancelled Rogers % (Auto) Cancelled Eos % (Auto) Cancelled Baso % (Auto) Cancelled Lymph # (Auto) Cancelled Rogers # (Auto) Cancelled Eos # (Auto) Cancelled Baso # (Auto) Cancelled Abs Immat Gran (auto) Cancelled Absolute Neuts (auto) Cancelled Absolute Nucleated RBC 0.000 Nucleated RBC % (auto) 0.0 Neutrophils % (Manual) 76 H Band Neutrophils % 1 L Lymphocytes % (Manual) 10 L Atypical Lymphs % (Man) 6 Monocytes % (Manual) 7 Abs Neuts (Manual) 6.4 Lymphocytes # (Manual) 0.8 L Atyp Lymphs # (Manual) 0.5 Monocytes # (Manual) 0.6 Toxic Vacuolation PRESENT Platelet Estimate SLIGHTLY INCREASED Large Platelets PRESENT Plt Morphology Comment NOTED RBC Morphology NOTED Polychromasia 1+ (0-2) Shawn Cells 1+ (0-2) Smear Tech's Comments MANUAL DIFF Smear Path Review Cancelled D-Dimer High Sensitivty VBG pH VBG pCO2 VBG pO2 VBG HCO3 VBG O2 Saturation VBG Base Excess Anion Gap Estim Creat Clear Calc Estimated GFR POC Glucose Random Glucose Estimat Average Glucose Hemoglobin A1c % Lactic Acid Calcium Magnesium Ferritin Total Bilirubin Direct Bilirubin AST ALT Alkaline Phosphatase Lactate Dehydrogenase Total Creatine Kinase Troponin I High Sens 3.9 C-Reactive Protein B-Natriuretic Peptide 15 Total Protein Albumin Lipase COVID-19 (LEONEL) COVID-19 Clin Com 08/20/21 08/20/21 08/21/21 19:12 19:20 05:38 MCV 85.9 MCH 29.2 MCHC 34.0 RDW 11.7 Plt Count 367 MPV 10.0 Immature Gran % (Auto) Neut % (Auto) Lymph % (Auto) Rogers % (Auto) Eos % (Auto) Baso % (Auto) Lymph # (Auto) Rogers # (Auto) Eos # (Auto) Baso # (Auto) Abs Immat Gran (auto) Absolute Neuts (auto) Absolute Nucleated RBC 0.000 Nucleated RBC % (auto) 0.0 Neutrophils % (Manual) Band Neutrophils % Lymphocytes % (Manual) Atypical Lymphs % (Man) Monocytes % (Manual) Abs Neuts (Manual) Lymphocytes # (Manual) Atyp Lymphs # (Manual) Monocytes # (Manual) Toxic Vacuolation Platelet Estimate Large Platelets Plt Morphology Comment RBC Morphology Polychromasia Gilberts Cells Smear Tech's Comments Smear Path Review D-Dimer High Sensitivty VBG pH 7.39 VBG pCO2 36 VBG pO2 35 VBG HCO3 23 VBG O2 Saturation 48.0 VBG Base Excess -1.3 Anion Gap Estim Creat Clear Calc Estimated GFR POC Glucose Random Glucose Estimat Average Glucose Hemoglobin A1c % Lactic Acid Calcium Magnesium Ferritin Total Bilirubin Direct Bilirubin AST ALT Alkaline Phosphatase Lactate Dehydrogenase Total Creatine Kinase Troponin I High Sens C-Reactive Protein B-Natriuretic Peptide Total Protein Albumin Lipase COVID-19 (LEONEL) Positive [employer] See Note 08/21/21 08/21/21 08/21/21 05:38 05:38 07:21 MCV MCH MCHC RDW Plt Count MPV Immature Gran % (Auto) Neut % (Auto) Lymph % (Auto) Rogers % (Auto) Eos % (Auto) Baso % (Auto) Lymph # (Auto) Rogers # (Auto) Eos # (Auto) Baso # (Auto) Abs Immat Gran (auto) Absolute Neuts (auto) Absolute Nucleated RBC Nucleated RBC % (auto) Neutrophils % (Manual) Band Neutrophils % Lymphocytes % (Manual) Atypical Lymphs % (Man) Monocytes % (Manual) Abs Neuts (Manual) Lymphocytes # (Manual) Atyp Lymphs # (Manual) Monocytes # (Manual) Toxic Vacuolation Platelet Estimate Large Platelets Plt Morphology Comment RBC Morphology Polychromasia Gilberts Cells Smear Tech's Comments Smear Path Review D-Dimer High Sensitivty VBG pH VBG pCO2 VBG pO2 VBG HCO3 VBG O2 Saturation VBG Base Excess Anion Gap 18 Estim Creat Clear Calc 90.7 Estimated GFR > 60 POC Glucose 328 H Random Glucose 373 H* Estimat Average Glucose 321 Hemoglobin A1c % 12.8 Lactic Acid Calcium 8.1 L D Magnesium Ferritin Total Bilirubin Direct Bilirubin AST ALT Alkaline Phosphatase Lactate Dehydrogenase Total Creatine Kinase Troponin I High Sens C-Reactive Protein B-Natriuretic Peptide Total Protein Albumin Lipase COVID-19 (LEONEL) COVID-[facility] 08/21/21 08/21/21 12:20 16:52 MCV MCH MCHC RDW Plt Count MPV Immature Gran % (Auto) Neut % (Auto) Lymph % (Auto) Rogers % (Auto) Eos % (Auto) Baso % (Auto) Lymph # (Auto) Rogers # (Auto) Eos # (Auto) Baso # (Auto) Abs Immat Gran (auto) Absolute Neuts (auto) Absolute Nucleated RBC Nucleated RBC % (auto) Neutrophils % (Manual) Band Neutrophils % Lymphocytes % (Manual) Atypical Lymphs % (Man) Monocytes % (Manual) Abs Neuts (Manual) Lymphocytes # (Manual) Atyp Lymphs # (Manual) Monocytes # (Manual) Toxic Vacuolation Platelet Estimate Large Platelets Plt Morphology Comment RBC Morphology Polychromasia Shawn Cells Smear Tech's Comments Smear Path Review D-Dimer High Sensitivty VBG pH VBG pCO2 VBG pO2 VBG HCO3 VBG O2 Saturation VBG Base Excess Anion Gap Estim Creat Clear Calc Estimated GFR POC Glucose 315 H 368 H* Random Glucose Estimat Average Glucose Hemoglobin A1c % Lactic Acid Calcium Magnesium Ferritin Total Bilirubin Direct Bilirubin AST ALT Alkaline Phosphatase Lactate Dehydrogenase Total Creatine Kinase Troponin I High Sens C-Reactive Protein B-Natriuretic Peptide Total Protein Albumin Lipase COVID-19 (LEONEL) COVID-19 Clin Com Assessment and Plan (1) Pneumonia due to COVID-19 virus: Status: Acute (2) Hypoxia: Status: Acute Assessment and Plan: 61-year-old male with a past medical history of hypertension admitte with covid 19 with acute hypoxic respriatory failure, and covid PNA #Acute hypoxic respiratory failure #COVID-19 pneumonia -continue supplemental O2 -continue Iv corticosteroid -empiric Ceftx+ Azithro, I don't think he really needs it #Hyperglycemia--check A1C, I don't think steroid alone is causing this degree of hyperglycemia --SSI for now and if persitently high, add lantus #History of hypertension: REstart home meds (Norvasc and Metoprolol) #Pulmonary nodule: Outpatient follow-up with the PCP for surveillance in CT scans. DVT prophylaxis: Lovenox Code status: Full code Quality Stroke Does the patient have a stroke diagnosis?: No VTE Prior VTE?: No VTE Risk Level:: Medical - moderate - high VTE Device Contraindication: Treatment Not Indicated VTE Drug Contraindication: N/A - Med Ordered
[2021-08-21] MEDS: Azithromycin 500 MG TABLET PO (21:05)
[2021-08-21 21:11] LABS: Glucose, Whole Blood 312 mg/dL (60-115)
[2021-08-21] MEDS: cefTRIAXone sodium 1 GM in 0.9 % Sodium Chloride 50 ML IV (21:35)
--- NOTE | 2021-08-21 22:11 | P.CNID_ITS ---
History of Present Illness Data of Consult Service Date: 08/21/21 Requesting physician: Jose Chatterjee Primary Care Provider: Sesar Thomas MD [facility] Reason for consult: shortness of breath He presents with cough and shortness of breath for ten days. He has not been vaccinated against COVID. His COVID test is positive He has no productive sputum. Review of Systems Review of Systems: Yes all other systems are reviewed and are negative [facility] Past Medical History Medical History HTN (hypertension) Family History Family history: reviewed and not pertinent Social History Social History Alcohol intake: never Patient Tobacco Use Status: Never used Tobacco Advance Directives: No Advance Directives Information Provided: No service: No Current occupational status: retired [employer] Allergies Allergy/AdvReac Type Severity Reaction Status Date / Time chlorthalidone Allergy Unknown Rash Verified 08/20/21 13:24 lisinopril Allergy Unknown Cough, Verified 08/20/21 13:24 hives No Known Allergies Allergy Verified 08/20/21 13:24 Active Medications: Current Medications Acetaminophen (Acetaminophen 325 Mg Tablet) 650 mg PO Q6H PRN PRN Reason: Pain, Mild (Pain Scale 1-3) Azithromycin (Azithromycin 500 Mg Tablet) 500 mg PO Q24H COUNT INCLUDES THE [facility] Last Admin: 08/21/21 21:05 Dose: 500 mg Documented by: Dexamethasone (Dexamethasone 6 Mg Tablet) 6 mg PO DAILY COUNT INCLUDES THE [facility] Last Admin: 08/21/21 09:24 Dose: 6 mg Documented by: Dextrose (Dextrose 50 % 25 Gm/50 Ml Vial) 25 gm IVPUSH Q15M PRN; Protocol PRN Reason: per Hypoglycemia Standing Ord. Enoxaparin Sodium (Enoxaparin Sodium 40 Mg/0.4 Ml Syringe) 40 mg SUBCUT Q24H COUNT INCLUDES THE [facility] Last Admin: 08/21/21 01:32 Dose: 40 mg Documented by: Glucose (Glucose Gel 15 Gm Gel..Gram.) 15 gm PO Q15M PRN; Protocol PRN Reason: per Hypoglycemia Standing Ord. Ceftriaxone Sodium 1 gm/ (Sodium Chloride) 50 mls @ 100 mls/hr IV Q24H COUNT INCLUDES THE [facility] Last Admin: 08/21/21 21:35 Dose: 100 mls/hr Documented by: Insulin Human Lispro (Insulin Lispro 100 Unit/Ml 3 Ml Vial) 0 unit SUBCUT QIDACHS COUNT INCLUDES THE [facility]; Protocol Last Admin: 08/21/21 17:06 Dose: 10 unit Documented by: Melatonin (Melatonin 3 Mg Tablet) 6 mg PO BEDTIME PRN PRN Reason: Insomnia Metoprolol Tartrate (Metoprolol Tartrate 100 Mg Tablet) 100 mg PO BEDTIME COUNT INCLUDES THE [facility]; Protocol Last Admin: 08/21/21 15:42 Dose: 100 mg Documented by: Pharmacy Consult (Consult Rx Perform Med Rec) 1 each MISCELLANE ONCE PRN PRN Reason: Consult order Senna (Sennosides 8.6 Mg Tablet) 17.2 mg PO BEDTIME PRN PRN Reason: Constipation Sodium Chloride (0.9 % Sodium Chloride Flush 3 Ml Syringe) 3 ml IVFLUSH QSHIFT COUNT INCLUDES THE [facility] Last Admin: 08/21/21 19:42 Dose: Not Given Documented by: Home Medications Medication Instructions Recorded Confirmed Last Taken Type amlodipine 10 mg tablet 10 mg PO BEDTIME 08/20/21 08/20/21 08/19/21 History metoprolol tartrate 100 mg tablet 100 mg PO BEDTIME 08/20/21 08/20/21 08/19/21 History Physical Exam Vital Signs: Vital Signs: Last Vital Signs Temp 97.7 F 08/21/21 21:33 Pulse 84 08/21/21 21:33 Resp 18 08/21/21 21:33 BP 139/89 08/21/21 21:33 Pulse Ox 92 08/21/21 21:33 Body Mass Index 44.2 Const: General: cooperative Eyes: General: appearance normal, both eyes and all related structures Resp: Effort & Inspection: normal respiratory effort Cardio: Rate: regular rate Rhythm: regular rhythm GI: Palpation (GI): nontender Skin: General skin exam: no rashes or lesions noted Extrem: General: Yes normal to inspection Results Labs CBC & Chem 7: 08/21/21 05:38 08/21/21 05:38 Labs: Short CBC 08/21/21 Range/Units 05:38 WBC 7.0 (4.8-10.8) X10*3/uL Hgb 14.7 (14.0-18.0) g/dl Hct 43.2 (42.0-52.0) % Plt Count 367 (160-400) X10*3/uL BMP 08/21/21 05:38 Sodium 134 L Potassium 4.7 Chloride 99 Carbon Dioxide 22 BUN 14 Creatinine 0.97 Calcium 8.1 L D Microbiology Microbiology Results: Microbiology 08/20/21 19:11 Blood - Venous Blood Culture - Preliminary No growth after 24 hours. 08/20/21 19:08 Blood - Venous Blood Culture - Preliminary No growth after 24 hours. Assessment and Plan (1) Pneumonia due to COVID-19 virus: Status: Acute He has hypoxia He has symptoms more than 10 days (2) Hypoxia: Status: Acute Would continue oxygen Would use Dexamethasone 6 mg a day for 10 days No antibiotics needed as no bacterial infection at this time
--- NOTE | 2021-08-21 22:26 | PC.NURSE ---
patient states that they have no pain anywhere in their body.
[2021-08-22] VITALS: BP 115/68; PULSE 78; RESP 15; TEMP 36.4; O2SAT 94
[2021-08-22] MEDS: Enoxaparin Sodium 40 MG/0.4 ML SYRINGE SUBCUT ×2 (00:31→21:25)
--- NOTE | 2021-08-22 02:12 | PC.NURSE ---
Pt resting on stretcher in NAD, breathing with ease on cooper cannula. Pt denies complaints of pain/discomfort. Pt questions if he is diabetic expressing concern for his elevated blood sugars. This RN explains that his A1c is elevated, indicating he likely has diabetes and will require follow up for further mgmt and treatment. pt expresses understanding. Pt stretcher in lowest locked position, rails raised, call gonzalez within reach.
[2021-08-22 03:25] VITALS: BP 133/89; PULSE 72; RESP 18; O2SAT 94
[2021-08-22 06:11] VITALS: BP 130/81; PULSE 89; RESP 18; O2SAT 94
--- NOTE | 2021-08-22 06:49 | PC.NURSE ---
When this RN at bedside for 0600 rounds, this RN asks pt how he's doing. Pt reports I don't even know. Upon further questioning, pt explains that his mother a few days ago, he's concerned regarding his covid dx and his blood sugar. Pt offered reassurance. Pt tearful, states I know I'll make it through because I have god on my side. This RN asked pt about his support systems and pt states I talk to my bingo clerk. This RN asks pt if there is anything that staff is able to do to further assist patient during this time which pt denies. Pt assured he should advocate for his needs should this change. Pt expresses understanding.
[2021-08-22 07:37] LABS: Glucose, Whole Blood 283 mg/dL (60-115)
[2021-08-22] MEDS: dexAMETHasone 6 MG TABLET PO (08:12)
[2021-08-22] MEDS: Insulin Lispro 100 UNIT/ML 3 ML VIAL SUBCUT ×4 (08:12→22:01)
[2021-08-22] MEDS: 0.9 % Sodium Chloride Flush 3 ML SYRINGE IVFLUSH (08:12)
[2021-08-22 09:50] LABS: Glucose, Whole Blood 260 mg/dL (60-115)
[2021-08-22 11:49] LABS: Glucose, Whole Blood 267 mg/dL (60-115)
--- NOTE | 2021-08-22 16:01 | HO.PM.IMPN ---
Subjective Subjective Date of Service: 08/22/21 Interval History: patient seen and examined at bedside, has no acute complaints. Reports his breathing has remained the same, has improved, no chest pain, no abdominal pain, no constipation or diarrhea, no urinary symptoms and no lower extremity edema Review of Systems Review of Systems: Yes all other systems are reviewed and are negative Physical Exam Vital Signs: Vital Signs: Last Vital Signs Temp 97.6 F 08/22/21 00:00 Pulse 89 08/22/21 06:11 Resp 18 08/22/21 06:11 BP 130/81 08/22/21 06:11 Pulse Ox 94 08/22/21 06:11 Body Mass Index 44.2 Const: General: cooperative and no acute distress Orientation/consciousness: patient oriented x3 Resp: Effort & Inspection: normal respiratory effort Auscultation: clear to auscultation bilaterally Cardio: Rate: regular rate Rhythm: regular rhythm GI: Palpation (GI): Soft to palpation Auscultation: normal bowel sounds Neuro: General: patient oriented x3 Extrem: General: Yes normal to inspection and Yes no pedal edema Objective Data Active Medications Acetaminophen (Acetaminophen 325 Mg Tablet) 650 mg PO Q6H PRN PRN Reason: Pain, Mild (Pain Scale 1-3) Dexamethasone (Dexamethasone 6 Mg Tablet) 6 mg PO DAILY [facility] Last Admin: 08/22/21 08:12 Dose: 6 mg Documented by: PENNY Dextrose (Dextrose 50 % 25 Gm/50 Ml Vial) 25 gm IVPUSH Q15M PRN; Protocol PRN Reason: per Hypoglycemia Standing Ord. Doxycycline Hyclate (Doxycycline Hyclate 100 Mg Tablet) 100 mg PO Q12H [facility] Last Admin: 08/22/21 11:46 Dose: 100 mg Documented by: EMERSON Enoxaparin Sodium (Enoxaparin Sodium 40 Mg/0.4 Ml Syringe) 40 mg SUBCUT Q24H [facility] Last Admin: 08/22/21 00:31 Dose: 40 mg Documented by: PAPO Glucose (Glucose Gel 15 Gm Gel..Gram.) 15 gm PO Q15M PRN; Protocol PRN Reason: per Hypoglycemia Standing Ord. Insulin Human Lispro (Insulin Lispro 100 Unit/Ml 3 Ml Vial) 0 unit SUBCUT QIDACHS [facility]; Protocol Last Admin: 08/22/21 11:51 Dose: 6 unit Documented by: Melatonin (Melatonin 3 Mg Tablet) 6 mg PO BEDTIME PRN PRN Reason: Insomnia Metoprolol Tartrate (Metoprolol Tartrate 100 Mg Tablet) 100 mg PO BEDTIME [facility]; Protocol Last Admin: 08/21/21 15:42 Dose: 100 mg Documented by: WILEY Pharmacy Consult (Consult Rx Perform Med Rec) 1 each MISCELLANE ONCE PRN PRN Reason: Consult order Senna (Sennosides 8.6 Mg Tablet) 17.2 mg PO BEDTIME PRN PRN Reason: Constipation Sodium Chloride (0.9 % Sodium Chloride Flush 3 Ml Syringe) 3 ml IVFLUSH QSHIFT ERWIN Last Admin: 08/22/21 15:16 Dose: Not Given Documented by: PENNY Non-Admin Reason: Patient Asleep Labs CBC & Chem 7: 08/21/21 05:38 08/21/21 05:38 Labs: Laboratory Results - last 24 hr 08/21/21 08/21/21 08/22/21 16:52 21:05 07:33 POC Glucose 368 H* 312 H 283 H 08/22/21 08/22/21 09:45 11:45 POC Glucose 260 H 267 H Microbiology Microbiology Results: Microbiology 08/20/21 19:11 Blood Culture - Preliminary Blood - Venous No growth after 24 hours. 08/20/21 19:08 Blood Culture - Preliminary Blood - Venous No growth after 24 hours. Assessment and Plan (1) Pneumonia due to COVID-19 virus: Status: Acute (2) Acute respiratory failure with hypoxia: Status: Acute Assessment and Plan: 61-year-old male with a past medical history of hypertension admitte with covid 19 with acute hypoxic respriatory failure, and covid PNA #Acute hypoxic respiratory failure - secondary to COVID-19 pneumonia - continue oxygen as required - continue dexamethasone 6 mg daily - infectious Disease evaluated patient, recommends discontinuing antibiotics at this time # COVID-19 pneumonia - continue Decadron as above - titrate O2 as tolerated #Hyperglycemia - has a hemoglobin A1c of 12.8 - patient has no documented history of diabetes - persistently elevated glucose - will add 10 of Lantus - continue SSI - will add diabetic Education - pock q.i.d. a.c. H, diabetic diet # History of hypertension - controlled - continue home meds (Norvasc and Metoprolol) #Pulmonary nodule:? Outpatient follow-up with the PCP for surveillance in CT scans.? DVT prophylaxis:? Lovenox Code status:? Full code Quality Stroke Does the patient have a stroke diagnosis?: No VTE Prior VTE?: No VTE Risk Level:: Medical - moderate - high VTE Device Contraindication: Treatment Not Indicated VTE Drug Contraindication: N/A - Med Ordered
[2021-08-22 18:33] VITALS: BP 140/77; PULSE 110; RESP 18; O2SAT 92
[2021-08-22 18:39] LABS: Glucose, Whole Blood 379 mg/dL (60-115)
[2021-08-22 21:14] VITALS: BP 160/89; PULSE 136; RESP 20; TEMP 36.4; O2SAT 95
[2021-08-22 21:24] VITALS: BP 160/89; PULSE 132
[2021-08-22] MEDS: Metoprolol Tartrate 100 MG TABLET PO (21:24)
[2021-08-22] MEDS: Insulin Glargine,Hum.rec.anlog 100 UNIT/ML 10 ML VIAL 10 UNIT SUBCUT (21:25)
[2021-08-22 21:43] LABS: Glucose, Whole Blood 491 mg/dL (60-115)
[2021-08-22] MEDS: Insulin Glargine,Hum.rec.anlog 100 UNIT/ML 10 ML VIAL 20 UNIT SUBCUT (22:02)
[2021-08-23] VITALS (10 sets, daily range): BP systolic 114–166; BP diastolic 65–97; PULSE 78–117; RESP 14–22; TEMP 36.2–36.9; O2SAT 93–97
[2021-08-23] MEDS: 0.9 % Sodium Chloride Flush 3 ML SYRINGE IVFLUSH ×4 (00:30→20:40)
[2021-08-23 00:38] LABS: Glucose, Whole Blood 419 mg/dL (60-115)
[2021-08-23] MEDS: Insulin Lispro 100 UNIT/ML 3 ML VIAL SUBCUT ×7 (01:07→20:35)
[2021-08-23 07:22] LABS: Glucose, Whole Blood 280 mg/dL (60-115)
[2021-08-23] MEDS: dexAMETHasone 6 MG TABLET PO (07:32)
[2021-08-23 11:49] LABS: Glucose, Whole Blood 316 mg/dL (60-115)
--- NOTE | 2021-08-23 11:52 | P.PNIM_ITS ---
Subjective Subjective Date of Service: 08/23/21 Interval History: seen and examined this morning follow up for covid 19/respiratory failure no shortness of breath, starting to feel better eating and drinking ok, no BM for few days Physical Exam Vital Signs: Vital Signs: Last Vital Signs Temp 97.2 F 08/23/21 11:20 Pulse 100 08/23/21 11:20 Resp 20 08/23/21 11:20 BP 138/86 08/23/21 11:20 Pulse Ox 93 08/23/21 11:20 Body Mass Index 44.2 Const: General: comfortable, alert, awake and Physically active Nutritional Appearance: well nourished and obese Orientation/consciousness: patient oriented x3 HENMT: Head: Yes normocephalic and Yes atraumatic Eyes: Sclerae: sclerae normal Resp: Effort & Inspection: normal respiratory effort and no respiratory distress Cardio: Rate: regular rate Rhythm: regular rhythm GI: Palpation (GI): Soft to palpation and nontender Neuro: General: patient oriented x3 Cranial nerves: Yes CN's II-XII intact bilaterally and Yes Bilaterally intact EOM present Extrem: Other: no leg edema Objective Data Active Medications Acetaminophen (Acetaminophen 325 Mg Tablet) 650 mg PO Q6H PRN PRN Reason: Pain, Mild (Pain Scale 1-3) Dexamethasone (Dexamethasone 6 Mg Tablet) 6 mg PO DAILY [facility] Last Admin: 08/23/21 07:32 Dose: 6 mg Documented by: MABLE Dextrose (Dextrose 50 % 25 Gm/50 Ml Vial) 25 gm IVPUSH Q15M PRN; Protocol PRN Reason: per Hypoglycemia Standing Ord. Doxycycline Hyclate (Doxycycline Hyclate 100 Mg Tablet) 100 mg PO Q12H [facility] Last Admin: 08/23/21 00:30 Dose: 100 mg Documented by: TOMASZ Enoxaparin Sodium (Enoxaparin Sodium 40 Mg/0.4 Ml Syringe) 40 mg SUBCUT Q24H [facility] Last Admin: 08/22/21 21:25 Dose: 40 mg Documented by: TOMASZ Glucose (Glucose Gel 15 Gm Gel..Gram.) 15 gm PO Q15M PRN; Protocol PRN Reason: per Hypoglycemia Standing Ord. Insulin Glargine (Insulin Glargine,Hum.Rec.Anlog 100 Unit/Ml 10 Ml Vial) 20 unit SUBCUT BEDTIME [facility] Last Admin: 08/22/21 22:02 Dose: 10 unit Documented by: TOMASZ Comments: 10 units given to total 20 units when added to previously administered dose. Insulin Human Lispro (Insulin Lispro 100 Unit/Ml 3 Ml Vial) 0 unit SUBCUT QIDACHS [facility]; Protocol Last Admin: 08/23/21 07:31 Dose: 6 unit Documented by: MABLE Melatonin (Melatonin 3 Mg Tablet) 6 mg PO BEDTIME PRN PRN Reason: Insomnia Metoprolol Tartrate (Metoprolol Tartrate 100 Mg Tablet) 100 mg PO BEDTIME [facility]; Protocol Last Admin: 08/22/21 21:24 Dose: 100 mg Documented by: TOMASZ Pharmacy Consult (Consult Rx Perform Med Rec) 1 each MISCELLANE ONCE PRN PRN Reason: Consult order Senna (Sennosides 8.6 Mg Tablet) 17.2 mg PO BEDTIME PRN PRN Reason: Constipation Sodium Chloride (0.9 % Sodium Chloride Flush 3 Ml Syringe) 3 ml IVFLUSH QSHIFT [facility] Last Admin: 08/23/21 07:32 Dose: 3 ml Documented by: MABLE Labs CBC & Chem 7: 08/21/21 05:38 08/21/21 05:38 Labs: Laboratory Results - last 24 hr 08/22/21 08/22/21 08/23/21 18:34 21:31 00:23 POC Glucose 379 H* 491 H* 419 H* 08/23/21 08/23/21 07:14 11:22 POC Glucose 280 H 316 H Microbiology Microbiology Results: Microbiology 08/20/21 19:11 Blood Culture - Preliminary Blood - Venous No growth after 48 hours. 08/20/21 19:08 Blood Culture - Preliminary Blood - Venous No growth after 48 hours. Assessment and Plan (1) Acute respiratory failure with hypoxia: Status: Acute (2) Pneumonia due to COVID-19 virus: Status: Acute Assessment and Plan: 61-year-old male with a past medical history of hypertension admitted with covid 19 with acute hypoxic respriatory failure, and covid PNA Acute hypoxic respiratory failure secondary to COVID-19 pneumonia Unvaccinated symptoms 10 days+ - wean o2 as tolerated - continue dexamethasone 6 mg daily x 10 days, started - seen by ID, rec steroids, not candidate for other treatments - started on doxycycline by pulmonology, formal consult pending Hyperglycemia HbA1c of 12.8. no documented history of diabetes sugars still elevatd, likely exacerbated by steroids - cotinue Lantus increased 08/22 - continue SSI, follow POCs, and up titrate insulin as needed - diabetic education, ADA diet HTN -Norvasc has been on hold, resume as BP allows -continue Metoprolol Constipation Bowel regimen Pulmonary nodule:? Outpatient follow-up with the PCP for surveillance in CT scans.? Morbid obesity BMI 44.3 Body habitus likely contributing to respiratory status DVT prophylaxis:? Lovenox Code status:? Full code Attending: Dr. Ramirez Quality Stroke Does the patient have a stroke diagnosis?: No VTE Prior VTE?: No VTE Risk Level:: Medical - moderate - high VTE Device Contraindication: Treatment Not Indicated VTE Drug Contraindication: N/A - Med Ordered
--- NOTE | 2021-08-23 12:02 | MHC.CM.PN ---
Per ROUNDS discussion, Patient is not yet medically cleared for dc (7L O2).Home is the goal for dc and CM will follow for possible need to adjust the dc plan.
[2021-08-23] MEDS: polyethylene glycoL 3350 17 GM POWD.PACK PO (12:23)
--- NOTE | 2021-08-23 12:32 | P.CONPL_ITS ---
History of Present Illness History of Present Illness Consult date: 08/23/21 Chief complaint: COVID PNA Narrative: This is an inpatient pulmonary consultation. The patient is a 66-year-old male with a past medical history of hypertension presented to the hospital with a chief complaint of shortness of breath and generalized weakness.? Patient reported that about a week ago he was diagnosed with COVID- 19; mentioned that he was not COVID vaccinated.? Since he was diagnosed with the COVID 19 mentioned that he has been having shortness of breath which has been gradually worsening and also complains of generalized weakness; denies any loss of sense of smell of; mentions he had metabolic testing is wall; denies any nausea vomiting or diarrhea.? Denies any cough or sputum production.?CT chest showed no evidence of pulmonary embolism but noted multifocal airspace disease consistent with COVID positive.? Hilar lymphadenopathy likely reactive.? Now on 7L NC. Review of Systems Constitutional: Constitutional: Denies night sweats ENT: Denies change in voice, Denies lip swelling, Denies mouth pain, Reports nasal congestion, Reports nasal discharge and Denies tongue swelling Cardiovascular: Cardiovascular: Denies chest pain and Reports dyspnea on exertion Respiratory: Respiratory: Reports cough and Reports dyspnea on exertion Gastrointestinal: Gastrointestinal: Denies abdominal pain Musculoskeletal: Musculoskeletal: Denies no additional musculoskeletal complaints Neurologic: Denies Neuro-related abnormal movements Psychiatric: Psychiatric: Denies no additional psychiatric complaints Hematologic/Lymphatic: Hematologic/Lymphatic: Denies easy bleeding and Denies lymphadenopathy Allergic/Immunologic: Allergic/Immunologic: Denies lip swelling and Denies tongue swelling PMFSH Past Medical History Medical History HTN (hypertension) Family History Family history: reviewed and not pertinent Social History Social History Household Members: Significant Other and Children Household Members Other:: 3 Housing: House Do you presently have visiting nurse or other home services: No Alcohol intake: current Patient Tobacco Use Status: Former Tobacco user service: No Current occupational status: retired Meds Allergies Allergy/AdvReac Type Severity Reaction Status Date / Time chlorthalidone Allergy Unknown Rash Verified 08/20/21 13:24 lisinopril Allergy Unknown Cough, Verified 08/20/21 13:24 hives No Known Allergies Allergy Verified 08/20/21 13:24 Active Medications: Current Medications Acetaminophen (Acetaminophen 325 Mg Tablet) 650 mg PO Q6H PRN PRN Reason: Pain, Mild (Pain Scale 1-3) Dexamethasone (Dexamethasone 6 Mg Tablet) 6 mg PO DAILY [facility] Last Admin: 08/23/21 07:32 Dose: 6 mg Documented by: Dextrose (Dextrose 50 % 25 Gm/50 Ml Vial) 25 gm IVPUSH Q15M PRN; Protocol PRN Reason: per Hypoglycemia Standing Ord. Doxycycline Hyclate (Doxycycline Hyclate 100 Mg Tablet) 100 mg PO Q12H [facility] Last Admin: 08/23/21 12:24 Dose: 100 mg Documented by: Enoxaparin Sodium (Enoxaparin Sodium 40 Mg/0.4 Ml Syringe) 40 mg SUBCUT Q24H [facility] Last Admin: 08/22/21 21:25 Dose: 40 mg Documented by: Glucose (Glucose Gel 15 Gm Gel..Gram.) 15 gm PO Q15M PRN; Protocol PRN Reason: per Hypoglycemia Standing Ord. Insulin Glargine (Insulin Glargine,Hum.Rec.Anlog 100 Unit/Ml 10 Ml Vial) 20 unit SUBCUT BEDTIME [facility] Last Admin: 08/22/21 22:02 Dose: 10 unit Documented by: Insulin Human Lispro (Insulin Lispro 100 Unit/Ml 3 Ml Vial) 0 unit SUBCUT QIDACHS [facility]; Protocol Last Admin: 08/23/21 12:24 Dose: 8 unit Documented by: Melatonin (Melatonin 3 Mg Tablet) 6 mg PO BEDTIME PRN PRN Reason: Insomnia Metoprolol Tartrate (Metoprolol Tartrate 100 Mg Tablet) 100 mg PO BEDTIME [facility]; Protocol Last Admin: 08/22/21 21:24 Dose: 100 mg Documented by: Pharmacy Consult (Consult Rx Perform Med Rec) 1 each MISCELLANE ONCE PRN PRN Reason: Consult order Polyethylene Glycol (Polyethylene Glycol 3350 17 Gm Powd.Pack) 17 gm PO DAILY [facility] Last Admin: 08/23/21 12:23 Dose: 17 gm Documented by: Senna (Sennosides 8.6 Mg Tablet) 17.2 mg PO BEDTIME PRN PRN Reason: Constipation Sodium Chloride (0.9 % Sodium Chloride Flush 3 Ml Syringe) 3 ml IVFLUSH QSHIFT [facility] Last Admin: 08/23/21 07:32 Dose: 3 ml Documented by: Home Medications Medication Instructions Recorded Confirmed Last Taken Type amlodipine 10 mg tablet 10 mg PO BEDTIME 08/20/21 08/20/21 08/19/21 History metoprolol tartrate 100 mg tablet 100 mg PO BEDTIME 08/20/21 08/20/21 08/19/21 History Physical Exam Vital Signs: Vital Signs: Last Vital Signs Temp 97.2 F 08/23/21 11:20 Pulse 100 08/23/21 11:20 Resp 20 08/23/21 11:20 BP 138/86 08/23/21 11:20 Pulse Ox 93 08/23/21 11:20 Body Mass Index 44.2 Const: General: alert HENMT: Ears: hearing grossly normal bilaterally Neck: Neck: Yes normal visual inspection and Yes full ROM Chest: Chest palpation & inspection: normal inspection of the chest Resp: Effort & Inspection: able to speak in complete sentences GI: Inspection: No distended Skin: General skin exam: rashes and/or lesions noted Extrem: General: Yes normal to inspection Results Laboratory Findings CBC and BMP: 08/21/21 05:38 08/21/21 05:38 Abnormal lab findings: Abnormal Labs 08/20/21 08/20/21 08/20/21 19:09 19:12 19:12 Neutrophils % (Manual) 76 H Band Neutrophils % 1 L Lymphocytes % (Manual) 10 L Lymphocytes # (Manual) 0.8 L Sodium 132 L Carbon Dioxide 21 L POC Glucose Random Glucose 277 H Calcium Ferritin 2431 H Lactate Dehydrogenase 423 H C-Reactive Protein 5.46 H COVID-19 (LEONEL) Positive A 08/21/21 08/21/21 08/21/21 05:38 07:21 12:20 Neutrophils % (Manual) Band Neutrophils % Lymphocytes % (Manual) Lymphocytes # (Manual) Sodium 134 L Carbon Dioxide POC Glucose 328 H 315 H Random Glucose 373 H* Calcium 8.1 L D Ferritin Lactate Dehydrogenase C-Reactive Protein COVID-19 (LEONEL) 08/21/21 08/21/21 08/22/21 16:52 21:05 07:33 Neutrophils % (Manual) Band Neutrophils % Lymphocytes % (Manual) Lymphocytes # (Manual) Sodium Carbon Dioxide POC Glucose 368 H* 312 H 283 H Random Glucose Calcium Ferritin Lactate Dehydrogenase C-Reactive Protein COVID-19 (LEONEL) 08/22/21 08/22/21 08/22/21 09:45 11:45 18:34 Neutrophils % (Manual) Band Neutrophils % Lymphocytes % (Manual) Lymphocytes # (Manual) Sodium Carbon Dioxide POC Glucose 260 H 267 H 379 H* Random Glucose Calcium Ferritin Lactate Dehydrogenase C-Reactive Protein COVID-19 (LEONEL) 08/22/21 08/23/21 08/23/21 21:31 00:23 07:14 Neutrophils % (Manual) Band Neutrophils % Lymphocytes % (Manual) Lymphocytes # (Manual) Sodium Carbon Dioxide POC Glucose 491 H* 419 H* 280 H Random Glucose Calcium Ferritin Lactate Dehydrogenase C-Reactive Protein COVID-19 (LEONEL) 08/23/21 11:22 Neutrophils % (Manual) Band Neutrophils % Lymphocytes % (Manual) Lymphocytes # (Manual) Sodium Carbon Dioxide POC Glucose 316 H Random Glucose Calcium Ferritin Lactate Dehydrogenase C-Reactive Protein COVID-19 (LEONEL) Microbiology: Microbiology 08/20/21 19:11 Blood - Venous Blood Culture - Preliminary No growth after 48 hours. 08/20/21 19:08 Blood - Venous Blood Culture - Preliminary No growth after 48 hours. Assessment and Plan (1) Acute respiratory failure with hypoxia: Status: Acute (2) Pneumonia due to COVID-19 virus: Status: Acute Continue Decadron x 10 days. Continue Doxycycline x 7 days NC O2 to keep pox >90% Start awake proning OOB to chair Melatonin No role for remdesivir nor IL6 inhibitors Dispo: Will monitor oxygen requirements over the weekend Procedures Date of Service Date of Service: 08/23/21
[2021-08-23 16:19] LABS: Glucose, Whole Blood 378 mg/dL (60-115)
[2021-08-23 19:39] LABS: Glucose, Whole Blood 317 mg/dL (60-115)
[2021-08-23] MEDS: Insulin Glargine,Hum.rec.anlog 100 UNIT/ML 10 ML VIAL 20 UNIT SUBCUT (20:34)
[2021-08-23] MEDS: Metoprolol Tartrate 100 MG TABLET PO (20:37)
[2021-08-23] MEDS: Enoxaparin Sodium 40 MG/0.4 ML SYRINGE SUBCUT (23:38)
[2021-08-24] VITALS (7 sets, daily range): BP systolic 132–168; BP diastolic 65–90; PULSE 70–108; RESP 18–20; TEMP 36.2–36.9; O2SAT 91–96
[2021-08-24 07:54] LABS: Glucose, Whole Blood 174 mg/dL (60-115)
[2021-08-24] MEDS: dexAMETHasone 6 MG TABLET PO (09:08)
[2021-08-24] MEDS: 0.9 % Sodium Chloride Flush 3 ML SYRINGE IVFLUSH ×3 (09:08→20:45)
[2021-08-24] MEDS: Insulin Lispro 100 UNIT/ML 3 ML VIAL SUBCUT ×8 (09:09→20:44)
[2021-08-24 11:32] LABS: Glucose, Whole Blood 190 mg/dL (60-115)
--- NOTE | 2021-08-24 11:33 | HO.PM.IMPN ---
Subjective Subjective Date of Service: 08/24/21 Interval History: F/u covid, respiratory failure, doing better, going down on 2 Review of Systems Gen: no fever Resp: +sob, no cough CV: no chest, no VÁSQUEZ, no leg edema GI: No n/v, no abd pain Neuro: No confusion Physical Exam Vital Signs: Vital Signs: Last Vital Signs Temp 97.5 F 08/24/21 11:21 Pulse 105 H 08/24/21 11:21 Resp 18 08/24/21 11:21 BP 132/89 08/24/21 11:21 Pulse Ox 96 08/24/21 11:21 General: AO X 3, no acute distress Resp: normal resp effort CVS: S1,S2,RRR GI: +BS, NT, no distention Skin: No rash Neuro: motor grossly intact Psych: appropriate affect Objective Data Active Medications Acetaminophen (Acetaminophen 325 Mg Tablet) 650 mg PO Q6H PRN PRN Reason: Pain, Mild (Pain Scale 1-3) Dexamethasone (Dexamethasone 6 Mg Tablet) 6 mg PO DAILY [facility] Last Admin: 08/24/21 09:08 Dose: 6 mg Documented by: SHLOMO Dextrose (Dextrose 50 % 25 Gm/50 Ml Vial) 25 gm IVPUSH Q15M PRN; Protocol PRN Reason: per Hypoglycemia Standing Ord. Doxycycline Hyclate (Doxycycline Hyclate 100 Mg Tablet) 100 mg PO Q12H [facility] Last Admin: 08/23/21 23:38 Dose: 100 mg Documented by: RUBINA Enoxaparin Sodium (Enoxaparin Sodium 40 Mg/0.4 Ml Syringe) 40 mg SUBCUT Q24H [facility] Last Admin: 08/23/21 23:38 Dose: 40 mg Documented by: RUBINA Glucose (Glucose Gel 15 Gm Gel..Gram.) 15 gm PO Q15M PRN; Protocol PRN Reason: per Hypoglycemia Standing Ord. Insulin Glargine (Insulin Glargine,Hum.Rec.Anlog 100 Unit/Ml 10 Ml Vial) 20 unit SUBCUT BEDTIME [facility] Last Admin: 08/23/21 20:34 Dose: 20 unit Documented by: RUBINA Insulin Human Lispro (Insulin Lispro 100 Unit/Ml 3 Ml Vial) 0 unit SUBCUT QIDACHS [facility]; Protocol Last Admin: 08/24/21 09:09 Dose: 2 unit Documented by: SHLOMO Insulin Human Lispro (Insulin Lispro 100 Unit/Ml 3 Ml Vial) 5 unit SUBCUT QIDACHS [facility] Last Admin: 08/24/21 09:09 Dose: 1 unit Documented by: SHLOMO Melatonin (Melatonin 3 Mg Tablet) 6 mg PO BEDTIME PRN PRN Reason: Insomnia Metoprolol Tartrate (Metoprolol Tartrate 100 Mg Tablet) 100 mg PO BEDTIME [facility]; Protocol Last Admin: 08/23/21 20:37 Dose: 100 mg Documented by: RUBINA Pharmacy Consult (Consult Rx Perform Med Rec) 1 each MISCELLANE ONCE PRN PRN Reason: Consult order Polyethylene Glycol (Polyethylene Glycol 3350 17 Gm Powd.Pack) 17 gm PO DAILY [facility] Last Admin: 08/24/21 09:19 Dose: Not Given Documented by: SHLOMO Non-Admin Reason: Patient Refused Senna (Sennosides 8.6 Mg Tablet) 17.2 mg PO BEDTIME PRN PRN Reason: Constipation Sodium Chloride (0.9 % Sodium Chloride Flush 3 Ml Syringe) 3 ml IVFLUSH QSHIFT [facility] Last Admin: 08/24/21 09:08 Dose: 3 ml Documented by: SHLOMO Labs CBC & Chem 7: 08/21/21 05:38 08/21/21 05:38 Labs: Laboratory Results - last 24 hr 08/23/21 08/23/21 08/23/21 11:22 16:14 19:35 POC Glucose 316 H 378 H* 317 H 08/24/21 08/24/21 07:47 11:25 POC Glucose 174 H 190 H Assessment and Plan (1) Acute respiratory failure with hypoxia: Status: Acute (2) Pneumonia due to COVID-19 virus: Status: Acute Assessment and Plan: 61-year-old male with a past medical history of hypertension admitted with covid 19 with acute hypoxic respriatory failure, and covid PNA Acute hypoxic respiratory failure secondary to COVID-19 pneumonia Unvaccinated symptoms 10 days+ - wean o2 as tolerated - continue dexamethasone 6 mg daily x 10 days, D4 - seen by ID, rec steroids, not candidate for other treatments - started on doxycycline by pulmonology, formal consult pending Hyperglycemia HbA1c of 12.8. no documented history of diabetes sugars still elevatd, likely exacerbated by steroids - cotinue Lantus increased 11/25 - continue SSI, follow POCs, and up titrate insulin as needed - diabetic education, ADA diet HTN -Norvasc has been on hold, resume as BP allows -continue Metoprolol Constipation Bowel regimen Pulmonary nodule:? Outpatient follow-up with the PCP for surveillance in CT scans.? Morbid obesity BMI 44.3 Body habitus likely contributing to respiratory status DVT prophylaxis:? Lovenox Code status:? Full code Attending: Dr. Ramirez Quality Stroke Does the patient have a stroke diagnosis?: No VTE Prior VTE?: No VTE Risk Level:: Medical - moderate - high VTE Device Contraindication: Treatment Not Indicated VTE Drug Contraindication: N/A - Med Ordered
[2021-08-24 16:20] LABS: Glucose, Whole Blood 330 mg/dL (60-115)
--- NOTE | 2021-08-24 17:57 | PC.NURSE ---
02 weaned down to 1.5L and alecia well. able to ambulate in room and sat in recliner today. Denies pain. Alecia diet.
[2021-08-24 19:45] LABS: Glucose, Whole Blood 355 mg/dL (60-115)
[2021-08-24] MEDS: Insulin Glargine,Hum.rec.anlog 100 UNIT/ML 10 ML VIAL 20 UNIT SUBCUT (20:44)
[2021-08-24] MEDS: Metoprolol Tartrate 100 MG TABLET PO (20:45)
[2021-08-24] MEDS: Enoxaparin Sodium 40 MG/0.4 ML SYRINGE SUBCUT (23:07)
[2021-08-25] VITALS (8 sets, daily range): BP systolic 131–162; BP diastolic 77–90; PULSE 72–94; RESP 18–20; TEMP 36.1–37.6; O2SAT 86–96
[2021-08-25 07:57] LABS: Glucose, Whole Blood 129 mg/dL (60-115)
[2021-08-25] MEDS: Insulin Lispro 100 UNIT/ML 3 ML VIAL SUBCUT ×7 (08:09→22:00)
[2021-08-25] MEDS: dexAMETHasone 6 MG TABLET PO (08:09)
[2021-08-25] MEDS: 0.9 % Sodium Chloride Flush 3 ML SYRINGE IVFLUSH ×3 (08:10→21:23)
--- NOTE | 2021-08-25 10:05 | HO.PM.IMPN ---
Subjective Subjective Date of Service: 08/25/21 Interval History: F/u covid, respiratory failure, doing better, maintain O2 with 2 liters, did ok on room air for a while but then dropped to as low as 86, he othwerise feels great Review of Systems Gen: no fever Resp: +sob, no cough CV: no chest, no VÁSQUEZ, no leg edema GI: No n/v, no abd pain Neuro: No confusion Physical Exam Vital Signs: Vital Signs: Last Vital Signs Temp 99.7 F 08/25/21 07:51 Pulse 72 08/25/21 07:51 Resp 20 08/25/21 07:51 BP 162/86 H 08/25/21 07:51 Pulse Ox 86 L 08/25/21 08:45 Oxygen Flow Rate 7 08/23/21 15:07 Body Mass Index 44.2 Const: Other: General: AO X 3, no acute distress Resp: talking in full sentences CVS: S1,S2,RRR GI: no pain Skin: No rash Neuro: motor grossly intact Psych: appropriate affect Objective Data Active Medications Acetaminophen (Acetaminophen 325 Mg Tablet) 650 mg PO Q6H PRN PRN Reason: Pain, Mild (Pain Scale 1-3) Dexamethasone (Dexamethasone 6 Mg Tablet) 6 mg PO DAILY [facility] Last Admin: 08/25/21 08:09 Dose: 6 mg Documented by: OMAR Dextrose (Dextrose 50 % 25 Gm/50 Ml Vial) 25 gm IVPUSH Q15M PRN; Protocol PRN Reason: per Hypoglycemia Standing Ord. Doxycycline Hyclate (Doxycycline Hyclate 100 Mg Tablet) 100 mg PO Q12H [facility] Last Admin: 08/24/21 23:07 Dose: 100 mg Documented by: AYO Enoxaparin Sodium (Enoxaparin Sodium 40 Mg/0.4 Ml Syringe) 40 mg SUBCUT Q24H [facility] Last Admin: 08/24/21 23:07 Dose: 40 mg Documented by: AYO Glucose (Glucose Gel 15 Gm Gel..Gram.) 15 gm PO Q15M PRN; Protocol PRN Reason: per Hypoglycemia Standing Ord. Insulin Glargine (Insulin Glargine,Hum.Rec.Anlog 100 Unit/Ml 10 Ml Vial) 20 unit SUBCUT BEDTIME [facility] Last Admin: 08/24/21 20:44 Dose: 20 unit Documented by: AYO Insulin Human Lispro (Insulin Lispro 100 Unit/Ml 3 Ml Vial) 0 unit SUBCUT QIDACHS [facility]; Protocol Last Admin: 08/25/21 08:10 Dose: Not Given Documented by: OMAR Non-Admin Reason: No Insulin Coverage Insulin Human Lispro (Insulin Lispro 100 Unit/Ml 3 Ml Vial) 5 unit SUBCUT QIDACHS [facility] Last Admin: 08/25/21 08:09 Dose: 5 unit Documented by: OMAR Melatonin (Melatonin 3 Mg Tablet) 6 mg PO BEDTIME PRN PRN Reason: Insomnia Metoprolol Tartrate (Metoprolol Tartrate 100 Mg Tablet) 100 mg PO BEDTIME [facility]; Protocol Last Admin: 08/24/21 20:45 Dose: 100 mg Documented by: AYO Pharmacy Consult (Consult Rx Perform Med Rec) 1 each MISCELLANE ONCE PRN PRN Reason: Consult order Polyethylene Glycol (Polyethylene Glycol 3350 17 Gm Powd.Pack) 17 gm PO DAILY [facility] Last Admin: 08/25/21 08:10 Dose: Not Given Documented by: OMAR Non-Admin Reason: Patient Refused Senna (Sennosides 8.6 Mg Tablet) 17.2 mg PO BEDTIME PRN PRN Reason: Constipation Sodium Chloride (0.9 % Sodium Chloride Flush 3 Ml Syringe) 3 ml IVFLUSH QSHIFT [facility] Last Admin: 08/25/21 08:10 Dose: 3 ml Documented by: MOAR Labs CBC & Chem 7: 08/21/21 05:38 08/21/21 05:38 Labs: Laboratory Results - last 24 hr 08/24/21 08/24/21 08/24/21 11:25 16:15 19:41 POC Glucose 190 H 330 H 355 H* 08/25/21 07:49 POC Glucose 129 H Assessment and Plan (1) Acute respiratory failure with hypoxia: Status: Acute (2) New onset type 2 diabetes mellitus: Status: Acute Assessment and Plan: 61-year-old male with a past medical history of hypertension admitted with covid 19 with acute hypoxic respriatory failure, and covid PNA Acute hypoxic respiratory failure secondary to COVID-19 pneumonia Unvaccinated - wean o2 as tolerated - continue dexamethasone 6 mg daily x 10 days, D5 - seen by ID, rec steroids, not candidate for other treatments - started on doxycycline by pulmonology -continue home o2 tomorrow Hyperglycemia, new onset diabetes HbA1c of 12.8. no documented history of diabetes sugars still elevatd, likely exacerbated by steroids - cotinue Lantus, FBS 129 today - continue SSI, follow POCs, and up titrate insulin as needed - diabetic education, ADA diet HTN -Norvasc at bedtime -continue Metoprolol Constipation Bowel regimen Pulmonary nodule:? Outpatient follow-up with the PCP for surveillance in CT scans.? Morbid obesity BMI 44.3 Body habitus likely contributing to respiratory status DVT prophylaxis:? Lovenox Code status:? Full code \ Quality Stroke Does the patient have a stroke diagnosis?: No VTE Prior VTE?: No VTE Risk Level:: Medical - moderate - high VTE Device Contraindication: Treatment Not Indicated VTE Drug Contraindication: N/A - Med Ordered
[2021-08-25 11:52] LABS: Glucose, Whole Blood 191 mg/dL (60-115)
[2021-08-25 16:39] LABS: Glucose, Whole Blood 384 mg/dL (60-115)
[2021-08-25 20:37] LABS: Glucose, Whole Blood 364 mg/dL (60-115)
[2021-08-25] MEDS: amLODIPine Besylate 10 MG TABLET PO (21:20)
[2021-08-25] MEDS: Metoprolol Tartrate 100 MG TABLET PO (21:21)
[2021-08-25] MEDS: Insulin Glargine,Hum.rec.anlog 100 UNIT/ML 10 ML VIAL 20 UNIT SUBCUT (21:21)
[2021-08-25] MEDS: Enoxaparin Sodium 40 MG/0.4 ML SYRINGE SUBCUT (21:23)
[2021-08-26] VITALS (10 sets, daily range): BP systolic 122–180; BP diastolic 65–93; PULSE 69–108; RESP 17–20; TEMP 36.2–37; O2SAT 91–97
[2021-08-26 07:56] LABS: Glucose, Whole Blood 134 mg/dL (60-115)
[2021-08-26] MEDS: dexAMETHasone 6 MG TABLET PO (08:15)
[2021-08-26] MEDS: Insulin Lispro 100 UNIT/ML 3 ML VIAL SUBCUT ×7 (08:15→20:57)
[2021-08-26] MEDS: 0.9 % Sodium Chloride Flush 3 ML SYRINGE IVFLUSH ×2 (08:16→17:35)
--- NOTE | 2021-08-26 11:11 | HO.PM.IMPN ---
Subjective Subjective Date of Service: 08/26/21 Interval History: late entry note for 08/26 f/u on covid related resp failure, continue to need oxygen but feeling better Review of Systems no fever sob Physical Exam Vital Signs: Vital Signs: Last Vital Signs Vitals on 08/26 reviewed Const: Other: General: AO X 3, no acute distress Resp: CTA bilateral CVS: S1,S2,RRR GI: +BS, NT, no distention Skin: No rash Neuro: motor grossly intact Psych: appropriate affect Objective Data Labs CBC & Chem 7: 08/21/21 05:38 08/21/21 05:38 Assessment and Plan (1) New onset type 2 diabetes mellitus: Status: Acute Assessment and Plan: 61-year-old male with a past medical history of hypertension admitted with covid 19 with acute hypoxic respriatory failure, and covid PNA Acute hypoxic respiratory failure secondary to COVID-19 pneumonia Unvaccinated - wean o2 as tolerated - continue dexamethasone 6 mg daily x 10 days - ID rec no further treatment - started on doxycycline by pulmonology Hyperglycemia, new onset diabetes HbA1c of 12.8. no documented history of diabetes sugars still elevatd, likely exacerbated by steroids - cotinue Lantus, - continue SSI, titrate insulin as needed - diabetic education, ADA diet HTN -Norvasc at bedtime -continue Metoprolol Constipation Bowel regimen Pulmonary nodule:? Outpatient follow-up with the PCP for surveillance in CT scans.? Morbid obesity BMI 44.3 Body habitus likely contributing to respiratory status DVT prophylaxis:? Lovenox Code status:? Full code Late entry note for 08/26/21 Quality Stroke Does the patient have a stroke diagnosis?: No VTE Prior VTE?: No VTE Risk Level:: Medical - moderate - high VTE Device Contraindication: Treatment Not Indicated VTE Drug Contraindication: N/A - Med Ordered
[2021-08-26 11:20] LABS: Glucose, Whole Blood 178 mg/dL (60-115)
--- NOTE | 2021-08-26 12:00 | MHC.CM.PN ---
Addendum entered by Ghazal Rose 08/27/21 10:02: No discharge yesterday. Patients Spo2 decreased. Supplemental oxygen was resumed. Patient states that he wants to go home today. Original Note: Male 61 DX Covid is discharged today to home. He has arranged for transportation from family. He is currently on AA, after being weaned. He will have a Home o2 eval prior to leaving. If he qualifies for home oxygen, RT will arrange for home oxygen thru [facility].
[2021-08-26 16:08] LABS: Glucose, Whole Blood 257 mg/dL (60-115)
[2021-08-26 20:05] LABS: Glucose, Whole Blood 339 mg/dL (60-115)
[2021-08-26] MEDS: Insulin Glargine,Hum.rec.anlog 100 UNIT/ML 10 ML VIAL 20 UNIT SUBCUT (20:57)
[2021-08-26] MEDS: Metoprolol Tartrate 100 MG TABLET PO (20:58)
[2021-08-26] MEDS: amLODIPine Besylate 10 MG TABLET PO (20:58)
[2021-08-27] MEDS: 0.9 % Sodium Chloride Flush 3 ML SYRINGE IVFLUSH ×2 (00:39→08:27)
[2021-08-27] MEDS: Enoxaparin Sodium 40 MG/0.4 ML SYRINGE SUBCUT (00:39)
[2021-08-27 03:53] VITALS: BP 140/85; PULSE 69; RESP 19; O2SAT 98
[2021-08-27 07:26] VITALS: BP 142/83; PULSE 64; RESP 18; TEMP 36; O2SAT 94
[2021-08-27 07:52] LABS: Glucose, Whole Blood 125 mg/dL (60-115)
[2021-08-27] MEDS: dexAMETHasone 6 MG TABLET PO (08:26)
[2021-08-27] MEDS: Insulin Lispro 100 UNIT/ML 3 ML VIAL SUBCUT ×3 (08:27→11:53)
[2021-08-27 09:51] VITALS: PULSE 77; O2SAT 95
[2021-08-27 11:26] LABS: Glucose, Whole Blood 197 mg/dL (60-115)
--- NOTE | 2021-08-27 11:28 | MHC.CM.PN ---
Addendum entered by Ghazal Rose 08/27/21 12:05: RN requested VNA for new insulin education. Md has ordered home services. Preferences obtained and referral sent to [facility]. Original Note: Male 61 DX Covid+ Patient is discharged to home today. He has arranged for a ride home. Per MD Patient does not require a home o2 eval prior to discharge.
--- NOTE | 2021-08-27 11:39 | P.DS_ITS ---
DS: Providers Provider Date of Service: 08/27/21 Date of admission: 08/20/21 23:03 Primary care physician: Sesar Thomas MD Consults: 08/20/21 23:02 Consult to Infectious Diseases Routine Consulting Provider: Marina Kwok Reason for consultation: COVID pNA 08/21/21 12:03 Consult to Pulmonology Routine Consulting Provider: Rufus Bueno Reason for consultation: repiratory failure DS: Diagnosis Discharge Diagnosis (1) Acute respiratory failure with hypoxia: Status: Acute (2) New onset type 2 diabetes mellitus: Status: Acute DS: Summary Hospital Course Hospital Course: 66-year-old male with a past medical history of hypertension presented to the hospital with a chief complaint of shortness of breath and generalized weakness.? Patient reported that about a week ago he was diagnosed with COVID-19; mentioned that he was not COVID vaccinated.? Since he was diagnosed with the COVID 19 mentioned that he has been having shortness of breath which has been gradually worsening and also complains of generalized weakness; denies any loss of sense of smell of; mentions he had metabolic testing is wall; denies any nausea vomiting or diarrhea.? Denies any cough or sputum production.? hospital course: patient came to the hospital because of acute hypoxemic respiratory failure secondary to COVID- subsequently started on IV steroids and oxygen support patient seems to be improved afterwards and does not require any oxygen now ,walking fine without oxygen. going home with p.o. dexamethasone. Also complete the course of doxycycline. New onset diabetes: Continue Lantus and insulin with meals. Further management outpatient as per PCP. Please check hemoglobin A1c outpatient with PCP. cta chest shows: Incidental Probable intrafissural lymph node in the left lung as well. Consider follow-up CAT scan in 3 months to assess the left lung nodule.? Outpatient follow-up with the PCP for surveillance in CT scans. Above management discussed with the patient in detail length he understand and in agreement with the above plan, time spent 50 minutes and 50% time spent on counseling. Significant findings: As above. Procedures performed: None. Treatment and response: As above. Complications: None. Time Spent with Patient Time attestation: Total time spent providing and/or coordinating discharge services: Discharge coordination time: Greater than 30 minutes Quality: Stroke Does the patient have a stroke diagnosis?: No Physical Exam Vital Signs: Vital Signs: Last Vital Signs Temp 96.8 F 08/27/21 07:26 Pulse 64 08/27/21 07:26 Resp 18 08/27/21 07:26 BP 142/83 H 08/27/21 07:26 Pulse Ox 94 08/27/21 07:26 Oxygen Flow Rate 7 08/23/21 15:07 Body Mass Index 44.2 Appearance: Alert.? Oriented X3.? not in distress.? Eyes: Pupils equal, round and reactive to light.? Sclera nonicteric.? ENT: Pharynx normal.? Moist mucous membranes. cvs: rrr, [id number] , no murmur res: clear to auscultation ,no rhonchii or wheezing abd: no rebound or guarding ,nt, bs present. ext pulses present , no cyanosis ,Gait well balanced well coordinated. neuro: axo3 , nonfocal. DS: Data Data Completed and Pending Labs on day of discharge: Laboratory Results - last 24 hr 08/26/21 08/26/21 08/27/21 16:02 19:57 07:48 POC Glucose 257 H 339 H 125 H 08/27/21 11:16 POC Glucose 197 H Additional Comments Additional comments: CT/CT angio chest PE protocol IMPRESSION: ? 1. No evidence of pulmonary embolism. 2. Multifocal airspace disease consistent with history of Covid positive. Mediastinal and hilar lymphadenopathy which is likely reactive. Probable intrafissural lymph node in the left lung as well. Consider follow-up CAT scan in 3 months to assess the left lung nodule. ? 2017 Fleischner Society Recommendations for Lung Nodule(s): Follow-Up based on size (average of long- and short-axis diameters). Use most suspicious nodule for followup. ? Single Solid lung nodule > 8 mm:? Consider? non-contrast Chest CT at 3 months, PET/CT, or tissue sampling.? ? These guidelines do not apply to patients younger than 35 years, immunocompromised patients, and patients with cancer. F/u in patients with significant comorbidities as clinically warranted. For lung cancer screening, adhere to Lung-RADS guidelines.? Discharge Plan Discharge Patient Disposition: Home Health Service Discharge Diagnosis: acute hypoxemic respiratory failure secondary to COVID, new onset diabetes Referrals: [facility] [Outside] - 1 Week Sesar Thomas MD [Primary Care Provider] - 1 Week Discharge Medications: New doxycycline hyclate 100 mg Tablet 100 mg PO Q12H Qty: 6 RF: 0 (DME) blood-glucose meter [FreeStyle Lite Meter] Kit See Rx Instructions .ROUTE .MEDSUPPLY Qty: 1 RF: 0 (DME) FreeStyle Lite Strips Strip See Rx Instructions .Route Qty: 100 RF: 0 (DME) lancets [FreeStyle Lancets] 28 gauge misc See Rx Instructions .ROUTE .MEDSUPPLY Qty: 100 RF: 0 dexamethasone 6 mg Tablet 6 mg PO DAILY Qty: 5 RF: 0 Lantus Solostar U-100 Insulin 100 unit/mL (3 mL) insulin pen 20 unit subcut QAM Qty: 15 RF: 0 insulin lispro [Humalog KwikPen Insulin] 100 unit/mL insulin pen 5 unit subcut TID Qty: 15 RF: 0 alcohol swabs Pads, Medicated See Protocol pad topical TID-QID PRN (Reason: diabetes) Qty: 100 RF: 0 insulin lispro [Humalog Moody KwikPen U-100] 100 unit/mL insulin pen, half- unit See Protocol sliding scale dose subcut USEASDIRECTD Qty: 15 RF: 0 Continued metoprolol tartrate 100 mg tablet 100 mg PO BEDTIME RF: 0 amlodipine 10 mg tablet 10 mg PO BEDTIME RF: 0 Discharge Orders: Discharge Order (Routine); Ordered 08/27/21 Ordered By: Summer Skaggs Diet: diabetic diet, low fat, low cholesterol and low salt diet Activity on Discharge: As tolerated Stand Alone Forms: Patient Portal Discharge page Care Plan Goals: patient came to the hospital because of acute hypoxemic respiratory failure secondary to COVID- subsequently started on IV steroids and oxygen support patient seems to be improved afterwards and does not require any oxygen now ,walking fine without oxygen. going home with p.o. dexamethasone. Also complete the course of doxycycline. New onset diabetes: Continue Lantus and insulin with meals. Further man agement outpatient as per PCP. Please check hemoglobin A1c outpatient with PCP. Health Concerns: As above. Plan of Treatment: As above. Assessment: As above. Patient Instructions: Insulin Glargine (By injection), Insulin Lispro (By injection), Foot Care for People with Diabetes (DC), Type 2 Diabetes in Adults: New Diagnosis (DC), How to Give an Insulin Injection (DC), Basic Carbohydrate Counting (DC), Meal Planning with the Plate Method (DC), What to Do if Your Blood Sugar is Low (DC), Diabetes and Nutrition (GEN), How to Check your Blood Sugar (DC), Type 2 Diabetes Management for Adults (DC) Discharge Date/Time: 08/27/21 14:01
[2021-08-27 11:43] VITALS: BP 136/80; PULSE 71; RESP 18; TEMP 36.1; O2SAT 95
--- NOTE | 2021-08-27 12:09 | W.MHC.F2F ---
Service Date Service Date: 08/27/21 Encounter Date of encounter: 08/27/21 Encounter: acute hypoxemic respiratory failure secondary to COVID, new onset diabetes mellitus. Reasons for Services Reason for chcf: diabetic teaching, monitoring of unstable blood sugar, medication management, medication treatment and teach disease management MD Overseeing Care: Sesar Thomas Homebound: Leaving the home is medically contraindicated at this time without the asist of a device and/or another person due th the listed conditions above and below. Homebound supporting statement: Patient is generalized weak and has new onset diabetes-dm management and will need help with appointments. Certification: Based on the above findings, I certify that this patient is confined to the home and needs intermittent chcf care, physical therapy and/or speech therapy, or continues to need occupational therapy. The patient is under my care, and I have initiated the establishment of the plan of care. The patient will be followed by a physician who will periodically review the plan of care.
== END 2021-08-27 14:01 | disposition home health service (06) | DRG 137 ==
LOC: HO.ED 21:23 → HO.EDOVER 23:15 → HO.IMC 08-21 18:41 → HO.EDOVER 08-21 19:24 → HO.IMC 08-23 07:14
PROVIDERS: Emergency Medicine; Internal Medicine; Physician Assistant Medical; Admitting Provider Hospitalist; Emergency Provider Internal Medicine; PCP Internal Medicine; Visit Provider Internal Medicine
DX: U07.1 COVID-19 (principal); J96.01 Acute respiratory failure with hypoxia; J12.82 Pneumonia due to coronavirus disease 2019; I10 Essential (primary) hypertension; E11.65 Type 2 diabetes mellitus with hyperglycemia; K59.00 Constipation, unspecified; E66.01 Morbid (severe) obesity due to excess calories; Z68.41 Body mass index [BMI] 40.0-44.9, adult; R91.1 Solitary pulmonary nodule; Z79.4 Long term (current) use of insulin; Z87.891 Personal history of nicotine dependence; Z79.899 Other long term (current) drug therapy
CPT/HCPCS: 36415; 71045; 71275; 80048; 80076; 82550; 82728; 82803; 82947; 83036; 83605; 83615; 83690; 83735; 83880; 84484; 85007; 85027; 85379; 86140; 87040; 87635; 93005; 96361; 96365; 96367; 96375; 99285; J0456; J0696; J1100; J1650; J8540; Q9967

== ENCOUNTER 2021-09-13 07:09 | Outpatient (REF) | payer OTHER, SELFPAY ==
[2021-09-13 07:14] LABS: MANUAL DIFF FLAG NO
[2021-09-13 07:51] LABS: Basophils Absolute Auto 0.1 X10*3/uL (0.0-0.2); Basophils Percent Auto 0.6 % (0-2); Eosinophils Absolute Auto 0.4 X10*3/uL (0.0-0.4); Eosinophils Percent Auto 4.9 % (0-4); Hemoglobin 13.8 g/dl (14.0-18.0); Imm Gran Abs Auto 0.03 X10*3/uL (0.00-0.03); Imm Gran Pct Auto 0.4 % (0.0-0.4); Lymphocytes Absolute Auto 2.4 X10*3/uL (1.2-4.9); Lymphocytes Percent Auto 30.5 % (20-40); Mean Corpuscular HGB Conc 32.9 g/dl (31.0-36.0); Mean Corpuscular Hemoglobin 29.6 pg (27.0-33.0); Mean Corpuscular Volume 90.1 fL (80.0-98.0); Mean Platelet Volume 9.5 fL (9.4-12.4); Monocytes Absolute Auto 0.7 X10*3/uL (0.1-1.2); Monocytes Percent Auto 8.6 % (2-11); Neutrophils Absolute Auto 4.3 x10*3/uL (2.0-8.3); Platelet Count 334 X10*3/uL (160-400); Red Blood Count 4.66 X10*6/uL (4.60-5.80); Red Cell Distribution Width 12.6 % (11.0-16.0); White Blood Count 7.8 X10*3/uL (4.8-10.8)
[2021-09-13 08:07] LABS: Alanine Aminotransferase 26 U/L (0-40); Alkaline Phosphatase 69 U/L (39-117); Anion Gap 13 (12-20); Aspartate Amino Transferase 19 U/L (5-37); Bilirubin Total 0.5 mg/dL (0.0-1.0); Blood Urea Nitrogen 7 mg/dL (9-16); Calcium 9.6 mg/dL (8.4-10.2); Carbon Dioxide 26 mmol/L (22-29); Chloride 106 mmol/L (96-108); Cholesterol 265 mg/dL; Estimated Glomerular Filt Rate > 60; Glucose Fasting 114 mg/dL (60-99); HDL Cholesterol 47 mg/dL; LDL Cholesterol Calculated 192 mg/dl; Potassium 4.7 mmol/L (3.3-5.1); Sodium 140 mmol/L (135-145); Total Protein 6.7 g/dL (6.5-8.0); Triglycerides 134 mg/dL
[2021-09-13 08:27] LABS: Thyroid Stimulating Hormone 1.75 uIU/mL (0.32-4.0)
[2021-09-13 08:44] LABS: Estimated Average Glucose 266 mg/dL; Hemoglobin A1c % 10.9 %
[2021-09-13 10:45] LABS: Creatinine Urine 94.28 mg/dL; Microalbum/Creatinine Ratio Ur 8.4 ug/mg cr
== END 2021-09-13 07:10 | disposition home or self-care (01) ==
LOC: HO.LAB 07:09
PROVIDERS: PCP Internal Medicine; Visit Provider Internal Medicine
DX: Z00.00 Encounter for general adult medical examination without abnormal findings (principal); E11.9 Type 2 diabetes mellitus without complications
CPT/HCPCS: 36415; 80053; 80061; 82043; 83036; 84443; 85025

== ENCOUNTER 2021-12-25 08:12 | Outpatient (REF) | payer OTHER, SELFPAY ==
[2021-12-25 11:47] LABS: MANUAL DIFF FLAG NO
[2021-12-25 12:01] LABS: Basophils Absolute Auto 0.1 X10*3/uL (0.0-0.2); Eosinophils Absolute Auto 0.3 X10*3/uL (0.0-0.4); Eosinophils Percent Auto 3.5 % (0-4); Hematocrit 46.3 % (42.0-52.0); Hemoglobin 14.6 g/dl (14.0-18.0); Imm Gran Abs Auto 0.02 X10*3/uL (0.00-0.03); Imm Gran Pct Auto 0.3 % (0.0-0.4); Lymphocytes Absolute Auto 2.8 X10*3/uL (1.2-4.9); Lymphocytes Percent Auto 35.3 % (20-40); Mean Corpuscular HGB Conc 31.5 g/dl (31.0-36.0); Mean Corpuscular Volume 95.1 fL (80.0-98.0); Mean Platelet Volume 10.3 fL (9.4-12.4); Monocytes Absolute Auto 0.6 X10*3/uL (0.1-1.2); Neutrophils Absolute Auto 4.1 x10*3/uL (2.0-8.3); Neutrophils Percent Auto 51.9 % (45-73); Platelet Count 354 X10*3/uL (160-400); Red Blood Count 4.87 X10*6/uL (4.60-5.80); Red Cell Distribution Width 11.8 % (11.0-16.0); White Blood Count 7.9 X10*3/uL (4.8-10.8)
[2021-12-25 12:11] LABS: Creatinine Urine 137.69 mg/dL; Microalbum/Creatinine Ratio Ur 7.2 ug/mg cr
[2021-12-25 12:50] LABS: Erythrocyte Sedimentation Rate 20 MM/HR (0-15)
[2021-12-25 13:20] LABS: Alanine Aminotransferase 14 U/L (0-40); Albumin Level 4.2 g/dL (3.5-5.0); Alkaline Phosphatase 62 U/L (39-117); Anion Gap 15 (12-20); Aspartate Amino Transferase 12 U/L (5-37); Bilirubin Total 0.3 mg/dL (0.0-1.0); Blood Urea Nitrogen 11 mg/dL (9-16); Calcium 9.8 mg/dL (8.4-10.2); Carbon Dioxide 24 mmol/L (22-29); Chloride 107 mmol/L (96-108); Cholesterol 277 mg/dL; Estimated Glomerular Filt Rate > 60; Glucose Fasting 111 mg/dL (60-99); HDL Cholesterol 48 mg/dL; LDL Cholesterol Calculated 202 mg/dl; Potassium 4.7 mmol/L (3.3-5.1); Sodium 141 mmol/L (135-145); Total Protein 6.7 g/dL (6.5-8.0); Triglycerides 137 mg/dL
== END 2021-12-25 08:13 | disposition home or self-care (01) ==
LOC: HO.HMGCLDS 08:12
PROVIDERS: PCP Internal Medicine; Visit Provider Internal Medicine
DX: Z00.00 Encounter for general adult medical examination without abnormal findings (principal); Z13.0 Encounter for screening for diseases of the blood and blood-forming organs and certain disorders involving the immune mechanism; E11.9 Type 2 diabetes mellitus without complications; R21 Rash and other nonspecific skin eruption
CPT/HCPCS: 36415; 80053; 80061; 82043; 84443; 85025; 85652

== ENCOUNTER 2022-06-27 07:44 | Outpatient (REF) | payer OTHER, SELFPAY ==
[2022-06-27 12:34] LABS: Cholesterol 256 mg/dL; Glucose Fasting 120 mg/dL (60-99); HDL Cholesterol 50 mg/dL; LDL Cholesterol Calculated 173 mg/dl; Triglycerides 166 mg/dL
[2022-06-27 12:52] LABS: Estimated Average Glucose 131 mg/dL; Hemoglobin A1c % 6.2 %
== END 2022-06-27 07:45 | disposition home or self-care (01) ==
LOC: HO.HMGCLDS 07:44
PROVIDERS: PCP Internal Medicine; Visit Provider Internal Medicine
DX: Z00.00 Encounter for general adult medical examination without abnormal findings (principal); E11.65 Type 2 diabetes mellitus with hyperglycemia
CPT/HCPCS: 36415; 80061; 82947; 83036

== ENCOUNTER 2022-10-03 08:18 | Outpatient (REF) | payer OTHER, SELFPAY ==
[2022-10-03 11:54] LABS: Estimated Average Glucose 131 mg/dL; Hemoglobin A1c % 6.2 %
[2022-10-03 12:03] LABS: Cholesterol 248 mg/dL; Glucose Fasting 123 mg/dL (60-99); HDL Cholesterol 38 mg/dL; LDL Cholesterol Calculated 183 mg/dl; Triglycerides 138 mg/dL
== END 2022-10-03 08:19 | disposition home or self-care (01) ==
LOC: HO.HMGCLDS 08:18
PROVIDERS: PCP Internal Medicine; Visit Provider Internal Medicine
DX: E11.65 Type 2 diabetes mellitus with hyperglycemia (principal); E78.5 Hyperlipidemia, unspecified
CPT/HCPCS: 36415; 80061; 82947; 83036

== ENCOUNTER 2023-01-02 07:56 | Outpatient (REF) | payer OTHER, SELFPAY ==
[2023-01-02 12:05] LABS: Estimated Average Glucose 137 mg/dL; Hemoglobin A1c % 6.4 %
[2023-01-02 12:21] LABS: Cholesterol 254 mg/dL; Glucose Fasting 131 mg/dL (60-99); HDL Cholesterol 42 mg/dL; LDL Cholesterol Calculated 166 mg/dl; Triglycerides 232 mg/dL
== END 2023-01-02 07:57 | disposition home or self-care (01) ==
LOC: HO.HMGCLDS 07:56
PROVIDERS: PCP Internal Medicine; Visit Provider Internal Medicine
DX: E11.65 Type 2 diabetes mellitus with hyperglycemia (principal); E78.5 Hyperlipidemia, unspecified; I10 Essential (primary) hypertension
CPT/HCPCS: 36415; 80061; 82947; 83036

== ENCOUNTER 2023-04-24 07:39 | Outpatient (REF) | payer MEDICARE, SELFPAY ==
[2023-04-24 11:27] LABS: MANUAL DIFF FLAG NO
[2023-04-24 11:32] LABS: Basophils Absolute Auto 0.1 X10*3/uL (0.0-0.2); Basophils Percent Auto 0.8 % (0-2); Eosinophils Absolute Auto 0.3 X10*3/uL (0.0-0.4); Eosinophils Percent Auto 2.5 % (0-4); Hematocrit 43.8 % (42.0-52.0); Hemoglobin 14.6 g/dl (14.0-18.0); Imm Gran Abs Auto 0.04 X10*3/uL (0.00-0.03); Imm Gran Pct Auto 0.4 % (0.0-0.4); Lymphocytes Absolute Auto 3.5 X10*3/uL (1.2-4.9); Lymphocytes Percent Auto 32.6 % (20-40); Mean Corpuscular HGB Conc 33.3 g/dl (31.0-36.0); Mean Corpuscular Hemoglobin 29.8 pg (27.0-33.0); Mean Corpuscular Volume 89.4 fL (80.0-98.0); Mean Platelet Volume 10.3 fL (9.4-12.4); Monocytes Absolute Auto 0.7 X10*3/uL (0.1-1.2); Neutrophils Percent Auto 56.7 % (45-73); Platelet Count 382 X10*3/uL (160-400); Red Cell Distribution Width 11.9 % (11.0-16.0); White Blood Count 10.6 X10*3/uL (4.8-10.8)
[2023-04-24 11:39] LABS: Estimated Average Glucose 134 mg/dL; Hemoglobin A1c % 6.3 %
[2023-04-24 12:02] LABS: Alanine Aminotransferase 25 U/L (0-40); Albumin Level 4.4 g/dL (3.5-5.0); Alkaline Phosphatase 78 U/L (39-117); Anion Gap 16 (12-20); Aspartate Amino Transferase 18 U/L (5-37); Bilirubin Total 0.4 mg/dL (0.0-1.0); Blood Urea Nitrogen 17 mg/dL (9-16); Calcium 9.7 mg/dL (8.4-10.2); Carbon Dioxide 21 mmol/L (22-29); Chloride 103 mmol/L (96-108); Cholesterol 258 mg/dL; Estimated Glomerular Filt Rate > 60; Glucose Fasting 119 mg/dL (60-99); HDL Cholesterol 44 mg/dL; LDL Cholesterol Calculated 171 mg/dl; Potassium 4.3 mmol/L (3.3-5.1); Sodium 136 mmol/L (135-145); Total Protein 7.6 g/dL (6.5-8.0); Triglycerides 217 mg/dL
[2023-04-24 12:09] LABS: Thyroid Stimulating Hormone 2.48 uIU/mL (0.32-4.0)
[2023-04-24 14:43] LABS: Creatinine Urine 57.47 mg/dL; Microalbum/Creatinine Ratio Ur 13.9 ug/mg cr
== END 2023-04-24 07:40 | disposition home or self-care (01) ==
LOC: HO.HMGCLDS 07:39
PROVIDERS: PCP Internal Medicine; Visit Provider Internal Medicine
DX: E11.69 Type 2 diabetes mellitus with other specified complication (principal); E78.5 Hyperlipidemia, unspecified; N28.9 Disorder of kidney and ureter, unspecified; E03.9 Hypothyroidism, unspecified; D64.9 Anemia, unspecified; E66.01 Morbid (severe) obesity due to excess calories
CPT/HCPCS: 36415; 80053; 80061; 82043; 83036; 84443; 85025

== ENCOUNTER 2023-05-08 10:25 | Outpatient (AMB) | payer MEDICARE, SELFPAY ==
--- NOTE | 2023-05-08 10:28 | A.OFFPC_ITS ---
Vital Signs 05/08/23 10:30 Height 5 ft 4 in Weight 245 lb 2 oz BMI 42.1 BP 130/70 Blood Pressure Location Lt brachial Position Sitting Pulse 77 Pulse Source Pulse Oximeter Pulse Oximetry (%) 95 Oxygen Delivery Method Room Air Intake Visit Reasons: 4mth f/u Intake Note: Patient is here to follow up on DM, HTN, Hyperlipidemia. On Car Supervisor Required: No [employer] Planner: Not Required per policy Accompanied by: Self / Same As Patient Allergies metformin Allergy (Mild, Verified 05/08/23 10:29) Nausea chlorthalidone Allergy (Unknown, Verified 05/08/23 10:29) Rash lisinopril Allergy (Unknown, Verified 05/08/23 10:29) Cough, hives Medication List - Last Reconciled 05/08/23 by Sesar Thomas MD alcohol swabs See Protocol pad topical TID-QID PRN blood sugar diagnostic (Interface FoundryTouch Ultra Test strips) Use 1 test strip three times a day blood-glucose meter (Interface FoundryTouch Ultra2 Meter) As directed dulaglutide (Trulicity) 0.75 mg subcut QWEEK insulin lispro (Humalog KwikPen (U-100) Insulin) 5 units (0.05 mL) subcut TID lancets (OneTouch UltraSoft 2 Lancet) Use 1 lancet three times a day metoprolol tartrate 100 mg PO BEDTIME pen needle, diabetic (BD Ultra-Fine Mini Pen Needle) use four times a day with insulin Tobacco use date assessed: 05/08/23 Fall risk assessment: No Falls in past year Last assessed Fall Risk: 05/08/23 Dental Screening Dental Screen Date: 05/08/23 Did you have a dental visit in the last 12 months?: Yes Did you have a dental problem in the last 6 months where you did not have access to dental care?: No Was dental information given to patient?: Patient has dentist HPI 4mth f/u HPI Details DM HTN and hyperlipidemia; feels well; A1C good [facility] Medical History (Updated 04/24/22 @ 11:50 by Sesar Thomas MD) Acute respiratory failure with hypoxia HTN (hypertension) Hypoxia Type 2 diabetes mellitus with obesity Surgical History History of tonsillectomy and adenoidectomy Family History Mother No problems noted. Father No problems noted. Social History Household Members: Significant Other and Children Household Members Other:: 3 Housing: House Do you presently have visiting nurse or other home services: No Alcohol intake: current Patient Tobacco Use Status: Former Tobacco user e-Cigarette/Vaping Use: Never Used Second Hand Smoke Exposure: No service: No Current occupational status: retired Cognitive needs: No Hearing needs: No Vision needs: Yes (GLASSES) Questionnaire PHQ-9 Over the last 2 weeks, how often have you been bothered by any of the following problems? Depression Screening Interpretation: Negative Source: Developed by Drs. Reynold Thompson, Heidi Rogers, Jameson Fischer and colleagues, with an educational aquilino from [employer]. Thrive Questionnaire Date Thrive assessed: 10/08/22 Currently or been in a relationship where the following occur: no concerns reported LOY-7 AMB Questionnaire LOY-7 Date LOY - 7 assessed: 10/08/22 Source: Developed by Drs. Reynold Thompson, Heidi Rogers, Jameson Fischer and colleagues, with an educational aquilino from [employer]. Review of Systems Const Denies chills, Denies headache(s) and Denies weight loss ENT Denies headache(s) Card Denies chest pain, Denies syncope, Denies irregular heart rhythm and Denies dyspnea Resp Denies chest congestion, Denies cough and Denies dyspnea GI Denies abdominal pain, Denies change in stool character, Denies nausea and Denies vomiting Musc Denies deformity and Denies joint swelling Neuro Denies syncope and Denies headache(s) Physical exam (Primary Care) Vital Signs: Last Vital Signs Pulse 77 05/08/23 10:30 BP 130/70 05/08/23 10:30 Pulse Ox 95 05/08/23 10:30 Oxygen Delivery Method Room Air 05/08/23 10:30 BMI result Body Mass Index 42.1 Tobacco/Smoking Status: Tobacco use Status Tobacco use date assessed 05/08/23 05/08/23 10:34 Patient Tobacco Use Status Former Tobacco user 05/08/23 10:28 e-Cigarette/Vaping Use Never Used 05/08/23 10:28 Depression Screening Interpretation: Negative Thrive Assessment: Date of Thrive Assessment Date Thrive assessed 10/08/22 05/08/23 10:28 Currently or been in a relationship where the following occur: no concerns reported Const General: cooperative, comfortable and no acute distress Resp Effort & Inspection: normal respiratory effort Auscultation: clear to auscultation bilaterally Percussion: percussion normal Cardio Jugular venous distension: no JVD Rate: regular rate Rhythm: regular rhythm GI Inspection: Yes normal to inspection Assessment and Plan Assessment & Plan (1) Hypertension: Code(s): I10 - Essential (primary) hypertension Plan: stable; same rx (2) Hyperlipidemia: Code(s): E78.5 - Hyperlipidemia, unspecified Plan: refuses rx (3) Type 2 diabetes mellitus with obesity: Code(s): E11.69 - Type 2 diabetes mellitus with other specified complication; E66.9 - Obe sity, unspecified Plan: stable; same rx Orders: Orders Glucose Fasting Today R73.9 - Hyperglycemia, unspecified Hemoglobin A1c Today R73.9 - Hyperglycemia, unspecified Lipid Panel Today E78.5 - Hyperlipidemia, unspecified Thyroid Stimulating Hormone Today E03.9 - Hypothyroidism, unspecified Medications: Refilled metoprolol tartrate 100 mg PO BEDTIME 90 tabs 8RF Coding Level of Care Code Est Pt Level 4 (13300) Diagnoses Hypertension I10 Hyperlipidemia E78.5 Type 2 diabetes mellitus with obesity E11.69; E66.9
[2023-05-08 10:30] VITALS: BP 130/70; PULSE 77; O2SAT 95; BMI 42.1
== END 2023-05-08 10:42 | disposition home or self-care (01) ==
PROVIDERS: Visit Provider Internal Medicine
DX: I10 Essential (primary) hypertension (principal); E11.69 Type 2 diabetes mellitus with other specified complication; Z68.41 Body mass index [BMI] 40.0-44.9, adult; E66.9 Obesity, unspecified; E78.5 Hyperlipidemia, unspecified
CPT/HCPCS: 99214

== ENCOUNTER 2023-10-01 08:06 | Outpatient (REF) | payer MEDICARE, SELFPAY | END 2023-10-01 08:07 | disposition home or self-care (01) | LOC: HO.HMGCLDS 08:06 | PROVIDERS: PCP Internal Medicine; Visit Provider Internal Medicine | DX: D64.9 Anemia, unspecified (principal); N28.9 Disorder of kidney and ureter, unspecified; R73.9 Hyperglycemia, unspecified; E78.5 Hyperlipidemia, unspecified; E03.9 Hypothyroidism, unspecified | CPT/HCPCS: 36415; 80053; 80061; 83036; 84443; 85025 ==

== ENCOUNTER 2023-10-05 10:27 | Outpatient (AMB) | payer MEDICARE, SELFPAY ==
[2023-10-05 10:36] VITALS: BP 142/88; PULSE 80; O2SAT 99; BMI 42.0
--- NOTE | 2023-10-05 10:36 | MHC.PC.OV ---
Vital Signs 10/05/23 10:36 Height 5 ft 4 in Weight 245 lb BMI 42.0 BP 142/88 H Blood Pressure Location Lt brachial Position Sitting Pulse 80 Pulse Source Pulse Oximeter Pulse Oximetry (%) 99 Oxygen Delivery Method Room Air Intake Visit Reasons: 4 month f/u Seismograph Supervisor Required: No Foreign Exchange Dealer: Not Required per policy Accompanied by: Self / Same As Patient Allergies metformin Allergy (Mild, Verified 05/08/23 10:29) Nausea chlorthalidone Allergy (Unknown, Verified 05/08/23 10:29) Rash lisinopril Allergy (Unknown, Verified 05/08/23 10:29) Cough, hives Tobacco use date assessed: 05/08/23 Fall risk assessment: No Falls in past year Last assessed Fall Risk: 10/05/23 Dental Screening Dental Screen Date: 10/05/23 Did you have a dental visit in the last 12 months?: Yes Did you have a dental problem in the last 6 months where you did not have access to dental care?: No Was dental information given to patient?: Patient has dentist HPI 4 month f/u HPI Details HTN and DM on Rx; doing well; compliant [facility] Medical History (Updated 04/24/22 @ 11:50 by Sesar Thomas MD) Type 2 diabetes mellitus with obesity Acute respiratory failure with hypoxia Hypoxia HTN (hypertension) Surgical History History of tonsillectomy and adenoidectomy Family History Mother No problems noted. Father No problems noted. Social History Household Members: Significant Other and Children Household Members Other:: 3 Housing: House Do you presently have visiting nurse or other home services: No Alcohol intake: current Patient Tobacco Use Status: Former Tobacco user e-Cigarette/Vaping Use: Never Used Second Hand Smoke Exposure: No service: No Current occupational status: retired Cognitive needs: No Hearing needs: No Vision needs: Yes (GLASSES) Questionnaire PHQ-9 Over the last 2 weeks, how often have you been bothered by any of the following problems? 1. Little interest or pleasure in doing things: not at all 2. Feeling down, depressed, or hopeless: not at all 3. Trouble falling or staying asleep, or sleeping too much: not at all 4. Feeling tired or having little energy: not at all 5. Poor appetite or overeating: not at all 6. Feeling bad about yourself - or that you are a failure or have let yourself or your family down: not at all 7. Trouble concentrating on things, such as reading the newspaper or watching television: not at all 8. Moving or speaking so slowly that other people could have noticed. Or the opposite - being so fidgety or restless that you have been moving around a lot more than usual: not at all 9. Thoughts that you would be better off or of hurting yourself in some way: not at all Total score: 0 Depression Screening Interpretation: Negative Depression Screening Done: Yes 46051 - PHQ-9 Billing: Yes Source: Developed by Drs. Reynold Thompson, Heidi Rogers, Jameson Fischer and colleagues, with an educational aquilino from [employer]. Thrive Questionnaire Date Thrive assessed: 10/05/23 I am a: Patient What is your living situation today?: I have a steady place to live Within the past 12 months, did the food you bought not last and you didn't have the money to get more?: Never true Within the past 12 months, did you worry whether your food would run out before you got money to buy more?: Never true LOY-7 AMB Questionnaire LOY-7 Date LOY - 7 assessed: 10/08/22 Source: Developed by Drs. Reynold Thompson, Heidi Rogers, Jameson Fischer and colleagues, with an educational aquilino from [employer]. Review of Systems Const Denies chills, Denies headache(s) and Denies weight loss ENT Denies headache(s) Card Denies chest pain, Denies syncope, Denies irregular heart rhythm and Denies dyspnea Resp Denies chest congestion, Denies cough and Denies dyspnea GI Denies abdominal pain, Denies change in stool character, Denies nausea and Denies vomiting Musc Denies deformity and Denies joint swelling Neuro Denies syncope and Denies headache(s) Physical exam (Primary Care) Vital Signs: Last Vital Signs Pulse 80 10/05/23 10:36 BP 142/88 H 10/05/23 10:36 Pulse Ox 99 10/05/23 10:36 Oxygen Delivery Method Room Air 10/05/23 10:36 BMI result Body Mass Index 42.0 Tobacco/Smoking Status: Tobacco use Status Tobacco use date assessed 05/08/23 10/05/23 10:37 Patient Tobacco Use Status Former Tobacco user 10/05/23 10:37 e-Cigarette/Vaping Use Never Used 10/05/23 10:37 PHQ-9: PHQ-9 Score PHQ-9: Total score 0 10/05/23 10:40 Depression Screening Interpretation: Negative Thrive Assessment: Date of Thrive Assessment Date Thrive assessed 10/05/23 10/05/23 10:40 Const General: cooperative, comfortable, no acute distress and alert Neck Neck: Yes no lymphadenopathy Thyroid: Thyroid normal Resp Effort & Inspection: normal respiratory effort Auscultation: clear to auscultation bilaterally Percussion: percussion normal Cardio Jugular venous distension: no JVD Palpation: normal PMI Rate: regular rate Rhythm: regular rhythm Heart sounds: S1 normal heart sound present and S2 normal heart sound present GI Inspection: Yes normal to inspection Palpation (GI): No hepatosplenomegaly present Skin General skin exam: no rashes or lesions noted Extrem General: Yes no clubbing, cyanosis or edema Assessment and Plan Assessment & Plan (1) Hypertension: Code(s): I10 - Essential (primary) hypertension Plan: table; same rx (2) Obesity: Comment: see above Code(s): E66.9 - Obesity, unspecified Plan: as above (3) Type 2 diabetes mellitus with obesity: Code(s): E11.69 - Type 2 diabetes mellitus with other specified complication; E66.9 - Obesity, unspecified Plan: stable; same rx Orders: Orders Lipid Panel Today E78.5 - Hyperlipidemia, unspecified Glucose Fasting Today R73.9 - Hyperglycemia, unspecified Hemoglobin A1c Today R73.9 - Hyperglycemia, unspecified Coding Level of Care Code Est Pt Level 4 (00655) Diagnoses Hypertension I10 Obesity E66.9 Type 2 diabetes mellitus with obesity E11.69; E66.9
== END 2023-10-05 10:48 | disposition home or self-care (01) ==
PROVIDERS: PCP Internal Medicine; Visit Provider Internal Medicine
DX: I10 Essential (primary) hypertension (principal); E66.9 Obesity, unspecified; E11.69 Type 2 diabetes mellitus with other specified complication; Z68.41 Body mass index [BMI] 40.0-44.9, adult
CPT/HCPCS: 99214

== ENCOUNTER 2023-10-25 12:26 | Emergency (ER) | payer MEDICARE, SELFPAY ==
--- NOTE | ~2023-10-25 | US_ITS ---
EXAMINATION: US VENOUS WITH DOPPLER UPPER EXTREMITY, RIGHT CLINICAL INFORMATION: Right hand swelling. COMPARISON: None available. TECHNIQUE: Ultrasound of the upper extremity is performed using compression sonography and color and pulse Doppler flow with assessment of augmentation of flow. There is also imaging and Doppler assessment of the jugular and subclavian veins. Spectral analysis with color-flow imaging is performed. FINDINGS: Normal compression and augmented flow are noted throughout the visualized right upper extremity venous system, including the axillary, brachial, cubital, and radial and ulnar veins. There is normal flow in the internal jugular and subclavian veins. There is no visible evidence of deep or superficial thrombophlebitis. US/US venous duplex UE RT IMPRESSION: No evidence of right upper extremity venous thrombosis.
[2023-10-25 12:37] VITALS: BP 180/103; PULSE 83; RESP 20; TEMP 37; O2SAT 98; BMI 43.1
--- NOTE | 2023-10-25 12:44 | ED_ITS ---
HPI - Extremity Problem General Chief complaint: Extremity Injury, Upper Stated complaint: R wrist pain Time Seen by Provider: 10/25/23 14:06 Source: patient Mode of arrival: ambulatory Limitations: no limitations History of Present Illness HPI Narrative: patient is a 63-year-old male who presents emergency department for evaluation of pain to the right wrist. Onset 2 days ago. Was evaluated at urgent care yesterday had x-ray done which reportedly had no evidence of fracture. he reports that since yesterday he is experiencing a patch of redness and swelling over the volar aspect of the wrist/ distal forearm and swelling to the hand. Denies numbness or tingling. Has trialed pain management with ibuprofen Without any improvement. Reviewed XR impression from urgent Care that patient provided, no acute fracture dislocation, chronic mineralization products over the volar aspect of the scaphoid on the lateral view, normal osseous mineralization. Related Data Home Medications Medication Instructions Recorded Confirmed dulaglutide 0.75 mg/0.5 mL 0.75 mg subcut QWEEK 04/24/22 05/08/23 subcutaneous pen injector (Advaliant) Previous Rx's Medication Instructions Recorded pen needle, diabetic 31 gauge x #100 ea 10/28/2112/11 (BD Ultra-Fine Mini Pen Needle) insulin lispro 100 unit/mL 5 unit (0.05 mL) subcut TID #15 mL 12/03/21 subcutaneous pen (Humalog KwikPen (U-100) Insulin) blood-glucose meter (OneTouch #1 ea 04/13/23 Ultra2 Meter) metoprolol tartrate 100 mg tablet 100 mg PO BEDTIME #90 tabs 05/18/23 blood sugar diagnostic (OneTouch #100 ea 08/12/23 Ultra Test strips) alcohol swabs See Protocol topical TID-QID PRN 08/13/23 diabetes #100 ea lancets 30 gauge (OneTouch #100 ea 08/14/23 UltraSoft 2 Lancet) colchicine 0.6 mg tablet 0.6 mg PO BID #14 tabs 10/25/23 prednisone 20 mg tablet 40 mg (2 x 20 mg) PO DAILY 4 days 10/25/23 #8 tabs Allergies Allergy/AdvReac Type Severity Reaction Status Date / Time metformin Allergy Mild Nausea Verified 10/25/23 12:41 chlorthalidone Allergy Unknown Rash Verified 10/25/23 12:41 lisinopril Allergy Unknown Cough, Verified 10/25/23 12:41 hives Review of Systems 2 Review of Systems: Yes all other systems are reviewed and are negative [facility] Past Medical History Attestation statement: The following information was validated with the patient. Source: old records reviewed Medical History Type 2 diabetes mellitus with obesity Acute respiratory failure with hypoxia Hypoxia HTN (hypertension) Surgical History History of tonsillectomy and adenoidectomy Family History Family History Mother No problems noted. Father No problems noted. Social History Social History Household Members: Significant Other and Children Household Members Other:: 3 Housing: House Do you presently have visiting nurse or other home services: No Alcohol intake: current Patient Tobacco Use Status: Former Tobacco user e-Cigarette/Vaping Use: Never Used Second Hand Smoke Exposure: No Advance Directives: No Advance Directives Information Provided: Yes service: No Current occupational status: retired Cognitive needs: No Hearing needs: No Vision needs: Yes (GLASSES) Physical Exam 2 Vital Signs: Vital Signs: Last Vital Signs Temp 98.6 F 10/25/23 12:37 Pulse 76 10/25/23 15:19 Resp 18 10/25/23 15:19 BP 165/97 H 10/25/23 15:19 Pulse Ox 97 10/25/23 15:19 O2 Del Method Room Air 10/25/23 15:19 BMI result Body Mass Index 43.1 Appearance: Alert.?Oriented to person, place and time. No acute distress.?Normal affect. Eyes: Pupils equal, round and reactive to light.? ENT: Pharynx normal.?? Neck: Normal inspection.? Neck supple.?? CVS: Heart sounds normal. Normal heart rate and rhythm.? Pulses normal.?? Respiratory: No respiratory distress.? Lung sounds clear to auscultation bilaterally?? Abdomen: Soft and non-tender. Normoactive bowel sounds. Skin: Skin warm and dry.? Normal skin color.? Extremities: 2+ radial pulse bilaterally. Neurovascularly intact distally. Mild decreased AROM to the wrist right Neuro: Moves all extremities spontaneously. Sensation intact bilaterally. CN II- XII intact. No focal neuro deficits. Ambulates with normal steady gait. Course Course Course Narrative: RME: 63 yold male with pmh of one episode of gout 30 years ago presents to the ED for right wrist pain yesterday and now hand and wrist swollen. patient states no trauma. patient had normal xray at urgent care yesterday. Ultrasound right upper extremity ordered with labs including urine accident. Right upper extremity normal temperature with neurovascular motor exam intact. Negative for any redness or coldness. Reevaluation(s) Reevaluation #1: CBC reveals a mild leukocytosis of 12.3, likely inflammatory in nature, do not suspect septic joint/infection. CMP normal. Uric acid normal. Duplex ultrasound is without evidence of VTE To right upper extremity. Based on history and physical examination, most suspicious at this time for gout, patient received 1st dose of Colchicine and prednisone in the emergency department, will send prescriptions to pharmacy, advised outpatient follow-up with primary care provider for further evaluation and management. Time: 15:17 Medications Administered Discontinued Medications Generic Name Dose Route Start Last Admin Trade Name Freq PRN Reason Stop Dose Admin Colchicine 1.2 mg 10/25/23 15:25 10/25/23 15:51 Colchicine 0.6 Mg Tablet PO 10/25/23 15:26 1.2 mg ONCE ONE Administration Prednisone 40 mg 10/25/23 15:25 10/25/23 15:51 Prednisone 20 Mg Tablet PO 10/25/23 15:26 40 mg ONCE ONE Administration Medical Decision Making Medical Decision Making [facility] Narrative: Patient is a 63-year-old male past medical history of hypertension, diabetes, single episode of gout approximately 30 years prior, Presenting for right wrist pain with volar erythema and swelling to the hand atraumatic in nature. The extremity is neurovascularly intact distally. No fevers or chills, decreased range to the wrist, lower suspicion for septic joint. Prior XR without acute fracture or dislocation. Plan to obtain labs, venous duplex ultrasound to exclude VTE. Differential Diagnosis Differential Diagnoses: The differential diagnosis associated with the presentation includes Admission/Observation Consideration of admission/observation: Escalation of care including admission/observation considered Lab Data [facility] Lab Attestation statement: I reviewed the patient's lab results. ( See course narrative) 10/25/23 14:17 10/25/23 14:17 Labs: Lab Results 10/25/23 Range/Units 14:17 WBC 12.3 H (4.8-10.8) X10*3/uL RBC 4.83 (4.60-5.80) X10*6/uL Hgb 14.3 (14.0-18.0) g/dl Hct 41.8 L (42.0-52.0) % MCV 86.5 (80.0-98.0) fL MCH 29.6 (27.0-33.0) pg MCHC 34.2 (31.0-36.0) g/dl RDW 12.0 (11.0-16.0) % Plt Count 321 (160-400) X10*3/uL MPV 9.2 L (9.4-12.4) fL Immature Gran % (Auto) 0.3 (0.0-0.4) % Neut % (Auto) 69.2 (45-73) % Lymph % (Auto) 21.0 (20-40) % [place] % (Auto) 7.4 (2-11) % Eos % (Auto) 1.5 (0-4) % Baso % (Auto) 0.6 (0-2) % Lymph # (Auto) 2.6 (1.2-4.9) X10*3/uL [place] # (Auto) 0.9 (0.1-1.2) X10*3/uL Eos # (Auto) 0.2 (0.0-0.4) X10*3/uL Baso # (Auto) 0.1 (0.0-0.2) X10*3/uL Abs Immat Gran (auto) 0.04 H (0.00-0.03) X10*3/uL Absolute Neuts (auto) 8.5 H (2.0-8.3) x10*3/uL Absolute Nucleated RBC 0.000 (0.0-0.012) X10*3/uL Nucleated RBC % (auto) 0.0 (0.0-0.2) /100WBC PT 12.0 (11.1-13.3) SEC INR 1.0 (0.9-1.1) APTT 35.2 (26.0-36.4) SEC Sodium 136 (135-145) mmol/L Potassium 3.7 (3.3-5.1) mmol/L Chloride 102 (96-108) mmol/L Carbon Dioxide 23 (22-29) mmol/L Anion Gap 15 (12-20) BUN 12 (9-16) mg/dL Creatinine 0.79 (0.5-1.4) mg/dL Estim Creat Clear Calc 106.9 Estimated GFR > 60 Random Glucose 118 H (60-115) mg/dL Uric Acid 4.7 (3.4-7.0) mg/dL Calcium 10.0 (8.4-10.2) mg/dL Total Bilirubin 0.4 (0.0-1.0) mg/dL AST 15 (5-37) U/L ALT 23 (0-40) U/L Alkaline Phosphatase 79 (39-117) U/L Total Protein 7.5 (6.5-8.0) g/dL Albumin 4.3 (3.5-5.0) g/dL Independent Interpretation I performed an independent interpretation of an: Ultrasound Radiology Impression Discussion of test interpretation with radiology: I have reviewed the radiologist's reading. Radiologist Impression: US/US venous duplex UE RT IMPRESSION: No evidence of right upper extremity venous thrombosis. Independent Historian Clinical information obtained from an independent historian. History obtained from or confirmed by: Friend External Record Review External record reviewed: Prior outpatient radiology Prescription Management I considered prescription management with: Pain Medication Discharge Plan Discharge Clinical Impression: Acute gout of wrist Qualifiers: Encounter type: initial encounter Laterality: right Patient Disposition: Home, Self-Care Instructions: Gout (ED) Additional Instructions: as discussed, this is most concerning for gout to your wrist. Received the 1st dose of colchicine while in the emergency department, take 0.6mg by mouth 1 hour later after picking up from pharmacy. In addition, I have sent a prescription for prednisone for you to begin taking at home tomorrow. Please contact your primary care provider to arrange for a follow-up visit. Return back to emergency department any new or worsening symptoms or concerns. Prescriptions: New prednisone 20 mg tablet 40 mg PO DAILY 4 Days Qty: 8 0RF colchicine 0.6 mg tablet 0.6 mg PO BID Qty: 14 0RF No Action (DME) pen needle, diabetic [BD Ultra-Fine Mini Pen Needle] 31 gauge x 3/16 needle See Rx Instructions subcut QID Qty: 100 8RF Rx Instructions: use four times a day with insulin insulin lispro [Humalog KwikPen Insulin] 100 unit/mL insulin pen 5 unit subcut TID Qty: 15 8RF (DME) blood-glucose meter [OneTouch Ultra2 Meter] Misc See Rx Instructions .Route Qty: 1 0RF Rx Instructions: As directed metoprolol tartrate 100 mg tablet 100 mg PO BEDTIME Qty: 90 8RF (DME) OneTouch Ultra Test Strip See Rx Instructions .Route Qty: 100 3RF Rx Instructions: Use 1 test strip three times a day alcohol swabs Pads, Medicated See Protocol topical TID-QID PRN (Reason: diabetes) Qty: 100 8RF Protocol: Insulin Correction Scale Less than or equal to 110 ---- Give (units): 0 111 to 150 Give (units): 0 151 to 200 Give (units): 2 201 to 250 Give (units): 4 251 to 300 Give (units): 6 301 to 350 Give (units): 8 Greater than 350 Give (units): 10 Call MD if Blood Glucose > : 350 (DME) lancets [OneTouch UltraSoft 2 Lancet] 30 gauge misc See Rx Instructions .Route Qty: 100 3RF Rx Instructions: Use 1 lancet three times a day Trulicity 0.75 mg/0.5 mL pen injector 0.75 mg subcut QWEEK Referrals: Sesar Thomas MD [Primary Care Provider] - Interventions: ED Discharge Assessment Last Done: 10/25/23 15:50 Discharge Date/Time: 10/25/23 15:50
[2023-10-25 14:22] LABS: MANUAL DIFF FLAG NO
[2023-10-25 14:23] LABS: Basophils Absolute Auto 0.1 X10*3/uL (0.0-0.2); Basophils Percent Auto 0.6 % (0-2); Eosinophils Absolute Auto 0.2 X10*3/uL (0.0-0.4); Eosinophils Percent Auto 1.5 % (0-4); Hematocrit 41.8 % (42.0-52.0); Hemoglobin 14.3 g/dl (14.0-18.0); Imm Gran Abs Auto 0.04 X10*3/uL (0.00-0.03); Imm Gran Pct Auto 0.3 % (0.0-0.4); Lymphocytes Absolute Auto 2.6 X10*3/uL (1.2-4.9); Mean Corpuscular HGB Conc 34.2 g/dl (31.0-36.0); Mean Corpuscular Hemoglobin 29.6 pg (27.0-33.0); Mean Corpuscular Volume 86.5 fL (80.0-98.0); Mean Platelet Volume 9.2 fL (9.4-12.4); Monocytes Absolute Auto 0.9 X10*3/uL (0.1-1.2); Monocytes Percent Auto 7.4 % (2-11); Neutrophils Absolute Auto 8.5 x10*3/uL (2.0-8.3); Neutrophils Percent Auto 69.2 % (45-73); Platelet Count 321 X10*3/uL (160-400); Red Blood Count 4.83 X10*6/uL (4.60-5.80); White Blood Count 12.3 X10*3/uL (4.8-10.8)
[2023-10-25 14:31] LABS: Partial Thromboplastin Time 35.2 SEC (26.0-36.4)
[2023-10-25 15:02] LABS: Alanine Aminotransferase 23 U/L (0-40); Albumin Level 4.3 g/dL (3.5-5.0); Alkaline Phosphatase 79 U/L (39-117); Anion Gap 15 (12-20); Aspartate Amino Transferase 15 U/L (5-37); Bilirubin Total 0.4 mg/dL (0.0-1.0); Blood Urea Nitrogen 12 mg/dL (9-16); Carbon Dioxide 23 mmol/L (22-29); Chloride 102 mmol/L (96-108); Creatinine Clr Calc Pharmacy 106.9; Estimated Glomerular Filt Rate > 60; Glucose Random 118 mg/dL (60-115); Potassium 3.7 mmol/L (3.3-5.1); Sodium 136 mmol/L (135-145); Total Protein 7.5 g/dL (6.5-8.0); Uric Acid 4.7 mg/dL (3.4-7.0)
[2023-10-25 15:19] VITALS: BP 165/97; PULSE 76; RESP 18; O2SAT 97
[2023-10-25] MEDS: Colchicine 0.6 MG TABLET 1.2 MG PO (15:51)
[2023-10-25] MEDS: predniSONE 20 MG TABLET 40 MG PO (15:51)
== END 2023-10-25 15:50 | disposition home or self-care (01) ==
PROVIDERS: Physician Assistant; Emergency Provider Emergency Medicine; PCP Internal Medicine
DX: M10.031 Idiopathic gout, right wrist (principal); R60.0 Localized edema; Z79.899 Other long term (current) drug therapy
CPT/HCPCS: 36415; 80053; 84550; 85025; 85610; 85730; 93971; 99282; 99284

== ENCOUNTER 2023-11-02 13:30 | Outpatient (AMB) | payer MEDICARE, SELFPAY ==
[2023-11-02 13:34] VITALS: BP 148/84; PULSE 87; O2SAT 96; BMI 42.6
--- NOTE | 2023-11-02 13:34 | MHC.PC.OV ---
Vital Signs 11/02/23 13:34 Height 5 ft 4 in Weight 248 lb BMI 42.6 BP 148/84 H Blood Pressure Location Lt brachial Position Sitting Pulse 87 Pulse Source Pulse Oximeter Pulse Oximetry (%) 96 Oxygen Delivery Method Room Air Intake Visit Reasons: [facility], gout in right wrist Corrosion Engineer: Not Required per policy Accompanied by: Self / Same As Patient Allergies metformin Allergy (Mild, Verified 10/25/23 12:41) Nausea chlorthalidone Allergy (Unknown, Verified 10/25/23 12:41) Rash lisinopril Allergy (Unknown, Verified 10/25/23 12:41) Cough, hives Tobacco use date assessed: 11/02/23 Fall risk assessment: No Falls in past year Last assessed Fall Risk: 11/02/23 Dental Screening Dental Screen Date: 11/02/23 Did you have a dental visit in the last 12 months?: Yes Did you have a dental problem in the last 6 months where you did not have access to dental care?: No Was dental information given to patient?: Patient has dentist HPI [facility], gout in right wrist HPI Details er visit for gout left wrist which has resolved PFSH Medical History Type 2 diabetes mellitus with obesity Acute respiratory failure with hypoxia Hypoxia HTN (hypertension) Surgical History History of tonsillectomy and adenoidectomy Family History Mother No problems noted. Father No problems noted. Social History Household Members: Significant Other and Children Household Members Other:: 3 Housing: House Do you presently have visiting nurse or other home services: No Alcohol intake: current Patient Tobacco Use Status: Former Tobacco user e-Cigarette/Vaping Use: Never Used Second Hand Smoke Exposure: No service: No Current occupational status: retired Cognitive needs: No Hearing needs: No Vision needs: Yes (GLASSES) Questionnaire Thrive Questionnaire Date Thrive assessed: 10/05/23 AUDIT C Alcohol Use Questionnaire (AUDIT-C) 1. How often do you have a drink containing alcohol?: Never Total Score: 0 Score Reviewed/Action Taken: Yes LOY-7 AMB Questionnaire LOY-7 Date LOY - 7 assessed: 11/02/23 Feeling nervous, anxious, or on edge: 0 = Not at all Not being able to stop or control worryin = Not at all Worrying too much about different things: 0 = Not at all Trouble relaxin = Not at all Being so restless that it is hard to sit still: 0 = Not at all Becoming easily annoyed or irritable: 0 = Not at all Feeling afraid as if something awful might happen: 0 = Not at all Total LOY-7 score (0-4 normal; 5-9 mild; 10-14 moderate; 15-21 severe): 0 Source: Developed by Drs. Reynold Thompson, Heidi Rogers, Jameson Fischer and colleagues, with an educational aquilino from [employer]. Review of Systems Const Denies chills, Denies headache(s) and Denies weight loss ENT Denies headache(s) Card Denies chest pain, Denies syncope, Denies irregular heart rhythm and Denies dyspnea Resp Denies chest congestion, Denies cough and Denies dyspnea GI Denies abdominal pain, Denies change in stool character, Denies nausea and Denies vomiting Musc Denies deformity and Denies joint swelling Neuro Denies syncope and Denies headache(s) Physical exam (Primary Care) Vital Signs: Last Vital Signs Pulse 87 11/02/23 13:34 BP 148/84 H 11/02/23 13:34 Pulse Ox 96 11/02/23 13:34 Oxygen Delivery Method Room Air 11/02/23 13:34 BMI result Body Mass Index 42.6 Tobacco/Smoking Status: Tobacco use Status Tobacco use date assessed 11/02/23 11/02/23 13:39 Patient Tobacco Use Status Former Tobacco user 11/02/23 13:39 e-Cigarette/Vaping Use Never Used 11/02/23 13:39 Thrive Assessment: Date of Thrive Assessment Date Thrive assessed 10/05/23 11/02/23 13:39 Const General: cooperative, comfortable, no acute distress and alert Neck Neck: Yes no lymphadenopathy Thyroid: Thyroid normal Resp Effort & Inspection: normal respiratory effort Auscultation: clear to auscultation bilaterally Percussion: percussion normal Cardio Jugular venous distension: no JVD Palpation: normal PMI Rate: regular rate Rhythm: regular rhythm Heart sounds: S1 normal heart sound present and S2 normal heart sound present GI Inspection: Yes normal to inspection Palpation (GI): No hepatosplenomegaly present Skin General skin exam: no rashes or lesions noted Extrem General: Yes no clubbing, cyanosis or edema Assessment and Plan Assessment & Plan (1) Gout: Code(s): M10.9 - Gout, unspecified Plan: will monitor for now Coding Level of Care Code Est Pt Level 3 (11647) Diagnoses Gout M10.9
== END 2023-11-02 13:50 | disposition home or self-care (01) ==
PROVIDERS: PCP Internal Medicine; Visit Provider Internal Medicine
DX: M10.9 Gout, unspecified (principal)
CPT/HCPCS: 99213

== ENCOUNTER 2024-05-24 13:02 | Outpatient (REF) | payer MEDICARE, SELFPAY ==
[2024-05-24 16:31] LABS: Estimated Average Glucose 137 mg/dL; Hemoglobin A1c % 6.4 % (<6.0)
[2024-05-24 20:42] LABS: Cholesterol 237 mg/dL (<200); Glucose Fasting 119 mg/dL (60-99); HDL Cholesterol 47 mg/dL (>40); LDL Cholesterol Calculated 138 mg/dL (<100); Triglycerides 260 mg/dL (<150)
== END 2024-05-24 13:03 | disposition home or self-care (01) ==
LOC: HO.HMGCLDS 13:02
PROVIDERS: PCP Internal Medicine; Visit Provider Internal Medicine
DX: R73.9 Hyperglycemia, unspecified (principal); E78.5 Hyperlipidemia, unspecified
CPT/HCPCS: 36415; 80061; 82947; 83036

== ENCOUNTER 2024-05-24 13:24 | Outpatient (AMB) | payer MEDICARE, SELFPAY ==
--- NOTE | 2024-05-24 13:26 | AM.OFFWIN_ITS ---
Intake Vital Signs 05/24/24 13:28 05/24/24 13:51 Height 5 ft 4 in Weight 248 lb BMI 42.6 BP 142/100 H 152/110 H Blood Pressure Location Rt brachial Lt brachial Position Sitting Sitting Pulse 82 Pulse Source Pulse Oximeter Pulse Oximetry (%) 97 Oxygen Delivery Method Room Air Intake Visit Reasons: ep bp 175 over 112 vision rt eye Intake Note: Patient here for elevated BP, states he is not monitoring BPs at home as he is supposed to. He checked Bp because his right eye has been affected, states bright flashes . Left eye: 20/25 Right eye: 20/30 Patient Tobacco Use Status: Former Tobacco user Allergies metformin Allergy (Mild, Verified 05/24/24 13:28) Nausea chlorthalidone Allergy (Unknown, Verified 05/24/24 13:28) Rash lisinopril Allergy (Unknown, Verified 05/24/24 13:) Cough, hives Do you need a note to return to daycare/school/sports/work: No HPI ep bp 175 over 112 vision rt eye HPI Details Patient reports he was bent over cleaning part of his basement, when he noticed some bright white light flashing in his right eye. He went upstairs to check his blood pressure and noticed that it was 175/112. Patient states he does not regularly check his blood pressure and does not know a previous measurements have been over the past few weeks. The symptoms of flashing in his eye lasted approximately 5 minutes, patient reports they were consistent, without vision change, vision loss, headache, or pain. The patient denies any dysarthria, facial or unilateral numbness, speech dysfunction, or confusion. He denies any chest pain, shortness of breath, diaphoresis, or dyspnea on exertion. The patient does report that he previously was treated with additional medications for blood pressure but he had lost a significant amount of weight, and they were therefore discontinued. He has since gained some of the weight back. He does have a follow-up with his PCP on June 07. [facility] Medical History Type 2 diabetes mellitus with obesity Acute respiratory failure with hypoxia Hypoxia HTN (hypertension) Surgical History History of tonsillectomy and adenoidectomy Family History Mother No problems noted. Father No problems noted. Social History Household Members: Significant Other and Children Household Members Other:: 3 Housing: House Do you presently have visiting nurse or other home services: No Alcohol intake: current Patient Tobacco Use Status: Former Tobacco user e-Cigarette/Vaping Use: Never Used Second Hand Smoke Exposure: No service: No Current occupational status: retired Cognitive needs: No Hearing needs: No Vision needs: Yes (GLASSES) Review of Systems Const Reports as per HPI, Denies body aches, Denies excessive sweating, Denies fever(s), Denies headache(s) and Denies lethargy Eyes Reports no additional complaints, Denies blurry vision, Denies change in vision and Reports seeing flashes ENT Denies headache(s) Card Denies chest pain, Denies chest pain with activity, Denies diaphoresis, Denies irregular heart rhythm and Denies dyspnea Resp Denies dyspnea GI Denies abdominal pain, Denies diarrhea, Denies nausea and Denies vomiting Neuro Denies headache(s) Endo Denies excessive sweating Physical Exam Vital Signs: Last Vital Signs Pulse 82 05/24/24 13:28 BP 152/110 H 05/24/24 13:51 Pulse Ox 97 05/24/24 13:28 Oxygen Delivery Method Room Air 05/24/24 13:28 BMI result Body Mass Index 42.6 Const General: cooperative, healthy appearing and no acute distress HEENT Head: Yes normocephalic and Yes atraumatic Mouth: Normal oral and palatal mucosa present Eyes General: appearance normal, both eyes and all related structures Alignment and Position: alignment normal Periorbital: periorbital findings normal Conjunctivae: conjunctivae normal Pupils: Equal, round and reactive pupils present, Pupils normal by confrontation and Pupil accommodation reflex normal EOM: EOMs intact bilaterally Direct Ophthalmoscopy: normal light reflex, no photophobia, no papilledema, fundi normal bilaterally and other (Fundoscopic exam limited) Chest Chest palpation & inspection: normal inspection of the chest Resp Effort & Inspection: normal respiratory effort Auscultation: clear to auscultation bilaterally Cardio Palpation: normal PMI Rate: regular rate Rhythm: regular rhythm Heart sounds: S1 normal heart sound present, S2 normal heart sound present, no gallops, no murmurs and no rubs Neuro Cranial nerves: Yes Equal, round and reactive pupils present Extrem General: Yes normal to inspection Right lower extremity: no edema Left lower extremity: no edema Assessment & Plan Assessment & Plan (1) Hypertension: Code(s): I10 - Essential (primary) hypertension Qualifiers: Hypertension type: primary hypertension Qualified Code(s): I10 - Essential (primary) hypertension Plan: Reviewed warning signs of elevated blood pressure with patient including signs of stroke and heart attack. As patient has upcoming visit with PCP, we will initiate 5 mg of amlodipine, patient agrees to take blood pressure daily until seen by PCP to assess response to medication. Patient understands and agrees to consult care if he has any acute symptoms, including a recurrence of flashing lights or vision changes. Of note, vision was well within normal limits today. Medications: New amlodipine 5 mg PO DAILY 30 tabs 0RF Coding Level of Care Code Est Pt Level 3 (50509) Diagnoses Primary hypertension I10 Hypertension type: primary hypertension
--- OUTSIDE RECORDS SUMMARY | 2024-05-24 13:26 | XMS_ITS | Continuity of Care Document ---
Author Organization [facility] Address [address] [place] [address]- Care Team Providers Care Gm Mobile Name Role Phone William MCNULTY, Sesar Gutierrez Primary Care Physician Encounter [facility] Date(s): 10/08/23 - 11/07/23 [facility] [address] [place] [id number] Allergies, Adverse Reactions, Alerts No Known Allergies Medications Humalog Kwik Pen 100 units/mL subcutaneous injection = 5 units, Subcutaneous Injection, 3 times a day before meals, # 15 mL, 0 Refills, Maintenance, 01/30/22 16:10:00 EDT, Solution, Partial fill upon patient request if the prescription is for a schedule II opioid drug. Start Date: 01/30/22 Status: Ordered Lantus Solostar Pen 100 units/mL subcutaneous solution = 20 units, Daily, 0 Refills, Maintenance, 01/30/22 16:10:00 EDT, Partial fill upon patient requestif the prescription is for a schedule II opioid drug. Start Date: 01/30/22 Status: Ordered metFORMIN 500 mg oral tablet 1 tablet = 500 mg, By Mouth, 2 times a day, # 60 tablet, 6 Refills, Maintenance, 01/30/22 16:20:00 EDT, Tablet, [facility], Partial fill upon patient request if the prescription is for a schedule II opioid drug. Start Date: 01/30/22 Stop Date: 08/28/22 Status: Ordered Metoprolol Tartrate 100 mg oral tablet TAKE 1 TABLET BY MOUTH EVERY DAY Start Date: 01/30/22 Status: Ordered Trulicity Pen 0.75 mg/0.5 mL subcutaneous solution See Instructions, INJECT 0.5ML UNDER THE SKIN ONCE WEEKLY. ROTATE INJECTION SITES, # 2 mL, 4 Refills, Maintenance, 07/14/23 9:43:00 EDT, [facility] Start Date: 07/14/23 Status: Ordered Patient Care team information Care Team Personnel Name: William MCNULTY, Sesar Gutierrez Position: Reference Physician Member Role: PCP Address: Address: [address] [place] [id number]- Care Team Related Persons Name: ALIDA ROGERS Address: home [address] [place] [id number]
--- OUTSIDE RECORDS SUMMARY | 2024-05-24 13:26 | XMS_ITS | Continuity of Care Document ---
Author Organization [facility] Address [address] [place] [address]- Care Team Providers Care Conference Concierge Name Role Phone William MCNULTY, Sesar Gutierrez Primary Care Physician Encounter [facility] [place] Date(s): 08/13/22 - 09/12/22 [facility] [address] [place] [phone]- Allergies, Adverse Reactions, Alerts No Known Allergies [...] 6 Refills, Maintenance, 01/30/22 16:20:00 EDT, Tablet, [facility], Partial fill upon patient request if the prescription is for a schedule II opioid drug. Start Date: 01/30/22 Stop Date: 08/28/22 Status: Ordered Metoprolol Tartrate 100 mg oral tablet TAKE 1 TABLET BY MOUTH EVERY DAY Start Date: 01/30/22 Status: Ordered Trulicity Pen 0.75 mg/0.5 mL subcutaneous solution 0.5 mL = 0.75 mg, Subcutaneous Injection, Every week, rotate injection sites, # 2 mL, 6 Refills, Maintenance, 08/14/22 11:40:00 EST, Solution, [facility], Partial fill upon patient request if the prescription is for a schedule II opioid drug. Start Date: 08/14/22 Stop Date: 02/26/23 Status: Ordered Patient Care team information Care Team Personnel Name: Sesar Thomas MD Position: Reference Physician Member Role: PCP Address: Address: [address] [place] [address]- Care Team Related Persons Name: ALIDA ROGERS Address: home [address] [place] [address]
--- OUTSIDE RECORDS SUMMARY | 2024-05-24 13:26 | XMS_ITS | Continuity of Care Document ---
Author Organization [facility] Address [address] [place] [address]- Care Team Providers Care Loader Helper Name Role Phone William MCNULTY, Sesar Gutierrez Primary Care Physician [place] [facility] [place] [facility] [place](s): 01/30/22 - 03/01/22 [facility] [address] [place] [address] Attending Physician: Rosalia Andrade Admitting Physician: Admtr, [id number] Referring Physician: Admtr, [id number] Allergies, Adverse Reactions, Alerts No Known Allergies [...] Injection, Every week, rotate injection sites, # 2.5 mL, 6 Refills, Maintenance, 01/30/22 16:19:00 EDT, Solution, [facility], Partial fill upon patient requestif the prescription is for a schedule II opioid drug. Start Date: 01/30/22 Stop Date: 08/28/22 Status: Ordered
--- OUTSIDE RECORDS SUMMARY | 2024-05-24 13:26 | XMS_ITS | Continuity of Care Document ---
Author Organization [facility] Address [address] [place] [address]- Care Team Providers Care Hearing Care Professional Name Role Phone William MCNULTY, Sesar Gutierrez Primary Care Physician Encounter [facility] [place] Date(s): 08/14/22 - 09/13/22 [facility] [address] [place] [phone]- Allergies, Adverse Reactions, Alerts No Known Allergies [...] Reference Physician Member Role: PCP Address: Address: [address] [place] [address]- Care Team Related Persons Name: ALIDA ROGERS Address: home [address] [place] [address]
--- OUTSIDE RECORDS SUMMARY | 2024-05-24 13:26 | XMS_ITS | Continuity of Care Document ---
Author Organization [facility] Address [address] [place] [address]- Care Team Providers Care Quiller Operator Name Role Phone William MCNULTY, Sesar Gutierrez Primary Care Physician [place] [facility] [place] [facility] [place](s): 08/14/22 - 09/13/22 [facility] [address] [place] [phone]- Allergies, Adverse Reactions, Alerts No Known Allergies [...] Reference Physician Member Role: PCP Address: Address: [address] [place] [address]- Care Team Related Persons Name: ALIDA ROGERS Address: home [address] [place] [address]
--- OUTSIDE RECORDS SUMMARY | 2024-05-24 13:26 | XMS_ITS | Continuity of Care Document ---
Author Organization [facility] Address [address] [place] [phone]- Care Team Providers Care Heating Fixture Tender Name Role Phone William MCNULTY, Sesar Gutierrez Primary Care Physician Encounter [facility] Date(s): 12/07/23 - 01/06/24 [facility] [address] [place] [phone]- Allergies, Adverse Reactions, Alerts No Known Allergies [...] WEEKLY. ROTATE INJECTION SITES, # 2 mL, 3 Refills, Maintenance, 12/08/23 8:14:00 EDT, [facility] Start Date: 12/08/23 Status: Ordered Patient Care team information Care Team Personnel Name: William MCNULTY, Sesar Gutierrez Position: Reference Physician Member Role: PCP Address: Address: [address] [place] [phone]- Care Team Related Persons Name: ALIDA ROGERS Address: home [address] [place] [address]
--- OUTSIDE RECORDS SUMMARY | 2024-05-24 13:26 | XMS_ITS | Continuity of Care Document ---
Author Organization [facility] Address [address] [place] [address]- Care Team Providers Care Chief Inspector Name Role Phone William MCNULTY, Sesar Gutierrez Primary Care Physician [place] [facility] [place] 07/14/23 - 08/13/23 [facility] [address] [place] [id number] Allergies, Adverse Reactions, Alerts No Known Allergies [...] 6 Refills, Maintenance, 01/30/22 16:20:00 EDT, Tablet, [facility], Partial fill upon patient [...] mL, 4 Refills, Maintenance, 07/14/23 9:43:00 EDT, [facility] Start Date: 07/14/23 Status: Ordered Patient Care team information Care Team Personnel Name: William MCNULTY, Sesar Gutierrez Position: Reference Physician Member Role: PCP Address: Address: [address] [place] [address]- Care Team Related Persons Name: ALIDA ROGERS Address: home [address] [place] [address]
[2024-05-24 13:28] VITALS: BP 142/100; PULSE 82; O2SAT 97; BMI 42.6
[2024-05-24 13:51] VITALS: BP 152/110
== END 2024-05-24 14:16 | disposition home or self-care (01) ==
PROVIDERS: PCP Internal Medicine; Visit Provider Emergency Medicine
DX: I10 Essential (primary) hypertension (principal)
CPT/HCPCS: 99214

== ENCOUNTER 2024-07-06 09:59 | Outpatient (AMB) | payer MEDICARE, SELFPAY ==
[2024-07-06 09:59] VITALS: BP 142/76; PULSE 76; O2SAT 95; BMI 42.0
--- NOTE | 2024-07-06 09:59 | MHC.PC.OV ---
Vital Signs 07/06/24 09:59 Height 5 ft 4 in Weight 245 lb BMI 42.0 BP 142/76 H Blood Pressure Location Lt brachial Position Sitting Pulse 76 Pulse Source Pulse Oximeter Pulse Oximetry (%) 95 Oxygen Delivery Method Room Air Intake Visit Reasons: 4mo f/u ELEVATED BP Intake Note: Pt stated he has decided to start taking 10mg of amlodipine instead of 5mg. Service Delivery Supervisor Required: No Accompanied by: Self / Same As Patient Allergies metformin Allergy (Mild, Verified 07/06/24 10:01) Nausea chlorthalidone Allergy (Unknown, Verified 07/06/24 10:01) Rash lisinopril Allergy (Unknown, Verified 07/06/24 10:01) Cough, hives Medication List - Last Reconciled 07/06/24 by Sesar Thomas MD alcohol swabs See Protocol pad topical TID-QID PRN amlodipine 5 mg PO DAILY blood sugar diagnostic (OneTouch Ultra Test strips) Use 1 test strip three times a day blood-glucose meter (Physicians EndoscopyTouch Ultra2 Meter) As directed dulaglutide (Trulicity) 0.75 mg subcut QWEEK insulin lispro (Humalog KwikPen (U-100) Insulin) 5 units (0.05 mL) subcut TID lancets (Physicians EndoscopyTouch UltraSoft 2 Lancet) Use 1 lancet three times a day metoprolol tartrate 100 mg PO BEDTIME pen needle, diabetic (BD Ultra-Fine Mini Pen Needle) use four times a day with insulin Tobacco use date assessed: 11/02/23 Fall risk assessment: No Falls in past year Last assessed Fall Risk: 07/06/24 Dental Screening Dental Screen Date: 11/02/23 HPI 4mo f/u ELEVATED BP HPI Details HTN on Rx; [facility] Medical History Type 2 diabetes mellitus with obesity Acute respiratory failure with hypoxia Hypoxia HTN (hypertension) Surgical History History of tonsillectomy and adenoidectomy Family History Mother No problems noted. Father No problems noted. Social History Household Members: Significant Other and Children Household Members Other:: 3 Housing: House Do you presently have visiting nurse or other home services: No Alcohol intake: current Patient Tobacco Use Status: Former Tobacco user e-Cigarette/Vaping Use: Never Used Second Hand Smoke Exposure: No service: No Current occupational status: retired Cognitive needs: No Hearing needs: No Vision needs: Yes (GLASSES) Questionnaire PHQ-9 Over the last 2 weeks, how often have you been bothered by any of the following problems? 1. Little interest or pleasure in doing things: not at all 2. Feeling down, depressed, or hopeless: not at all 3. Trouble falling or staying asleep, or sleeping too much: not at all 4. Feeling tired or having little energy: not at all 5. Poor appetite or overeating: not at all 6. Feeling bad about yourself - or that you are a failure or have let yourself or your family down: not at all 7. Trouble concentrating on things, such as reading the newspaper or watching television: not at all 8. Moving or speaking so slowly that other people could have noticed. Or the opposite - being so fidgety or restless that you have been moving around a lot more than usual: not at all 9. Thoughts that you would be better off or of hurting yourself in some way: not at all Total score: 0 Depression Screening Interpretation: Negative Depression Screening Done: Yes [address]373 - PHQ-9 Billing: Yes Source: Developed by Drs. Reynold Thompson, Jameson Brannon and colleagues, with an educational aquilino from [employer]. Thrive Questionnaire Date Thrive assessed: 10/05/23 AUDIT C Alcohol Use Questionnaire (AUDIT-C) 1. How often do you have a drink containing alcohol?: Never Total Score: 0 Score Reviewed/Action Taken: Yes LOY-7 AMB Questionnaire LOY-7 Date LOY - 7 assessed: 11/02/23 Source: Developed by Drs. Reynold Thompson, Jameson Brannon and colleagues, with an educational aquilino from [employer]. Review of Systems Const Denies chills, Denies headache(s) and Denies weight loss ENT Denies headache(s) Card Denies chest pain, Denies syncope, Denies irregular heart rhythm and Denies dyspnea Resp Denies chest congestion, Denies cough and Denies dyspnea GI Denies abdominal pain, Denies change in stool character, Denies nausea and Denies vomiting Musc Denies deformity and Denies joint swelling Neuro Denies syncope and Denies headache(s) Physical exam (Primary Care) Vital Signs: Last Vital Signs Pulse 76 07/06/24 09:59 BP 142/76 H 07/06/24 09:59 Pulse Ox 95 07/06/24 09:59 Oxygen Delivery Method Room Air 07/06/24 09:59 BMI result Body Mass Index 42.0 Tobacco/Smoking Status: Tobacco use Status Tobacco use date assessed 11/02/23 07/06/24 10:06 Patient Tobacco Use Status Former Tobacco user 07/06/24 10:06 e-Cigarette/Vaping Use Never Used 07/06/24 10:06 PHQ-9: PHQ-9 Score PHQ-9: Total score 0 07/06/24 10:07 Depression Screening Interpretation: Negative Thrive Assessment: Date of Thrive Assessment Date Thrive assessed 10/05/23 07/06/24 10:06 Const General: cooperative, comfortable, no acute distress and alert Neck Neck: Yes no lymphadenopathy Thyroid: Thyroid normal Resp Effort & Inspection: normal respiratory effort Auscultation: clear to auscultation bilaterally Percussion: percussion normal Cardio Jugular venous distension: no JVD Palpation: normal PMI Rate: regular rate Rhythm: regular rhythm Heart sounds: S1 normal heart sound present and S2 normal heart sound present GI Inspection: Yes normal to inspection Palpation (GI): No hepatosplenomegaly present Skin General skin exam: no rashes or lesions noted Extrem General: Yes no clubbing, cyanosis or edema Coding Level of Care Code Est Pt Level 3 (98308) Diagnoses Primary hypertension I10 Hypertension type: primary hypertension Assessment & Plan Assessment & Plan (1) Hypertension: Code(s): I10 - Essential (primary) hypertension Category: Medical Qualifiers: Hypertension type: primary hypertension Qualified Code(s): I10 - Essential (primary) hypertension Plan: stable; same rx Orders: Orders Complete Blood Count Auto Diff Today Sesar Thomas MD Z13.0 - Encounter for screening for diseases of the blood and blood-forming organs and certain disorders involving the immune mechanism Comprehensive Medicine Bow. Panel Fast Today Sesar Thomas MD Z13.9 - Encounter for screening, unspecified Thyroid Stimulating Hormone Today Sesar Thomas MD Z13.29 - Encounter for screening for other suspected endocrine disorder Lipid Panel Today Sesar Thomas MD Z13.220 - Encounter for screening for lipoid disorders Hemoglobin A1c Today Sesar Thomas MD R73.9 - Hyperglycemia, unspecified Medications: New amlodipine 10 mg PO DAILY 90 tabs 1RF Sesar Thomas MD flash glucose scanning reader (FreeStyle Mauricio 14 Day [place]) As directed 1 ea 0RF Sesar Thomas MD flash glucose sensor (FreeStyle Mauricio 14 Day Sensor kit) As directed 1 ea 5RF Sesar Thomas MD Changed From amlodipine 10 mg PO DAILY To amlodipine 5 mg PO DAILY Erin Castillo, KARLOS
== END 2024-07-06 10:22 | disposition home or self-care (01) ==
LOC: HO.HMCH 09:59
PROVIDERS: PCP Internal Medicine; Visit Provider Internal Medicine
DX: I10 Essential (primary) hypertension (principal)

== ENCOUNTER → 2024-07-06 09:59 | Outpatient (BNVA) | payer MEDICARE, SELFPAY | PROVIDERS: PCP Internal Medicine; Visit Provider Internal Medicine | DX: I10 Essential (primary) hypertension (principal); E11.9 Type 2 diabetes mellitus without complications | CPT/HCPCS: 96127; 99212 ==

== ENCOUNTER 2024-08-23 10:04 | Outpatient (REF) | payer MEDICARE, SELFPAY ==
[2024-08-23 13:11] LABS: MANUAL DIFF FLAG NO
[2024-08-23 13:14] LABS: Basophils Absolute Auto 0.1 X10*3/uL (0.0-0.2); Basophils Percent Auto 0.8 % (0-2); Eosinophils Absolute Auto 0.3 X10*3/uL (0.0-0.4); Eosinophils Percent Auto 3.2 % (0-4); Hematocrit 41.6 % (42.0-52.0); Imm Gran Abs Auto 0.05 X10*3/uL (0.00-0.03); Imm Gran Pct Auto 0.5 % (0.0-0.4); Lymphocytes Absolute Auto 2.8 X10*3/uL (1.2-4.9); Lymphocytes Percent Auto 30.5 % (20-40); Mean Corpuscular HGB Conc 33.7 g/dl (31.0-36.0); Mean Corpuscular Volume 89.3 fL (80.0-98.0); Mean Platelet Volume 9.9 fL (9.4-12.4); Monocytes Absolute Auto 0.7 X10*3/uL (0.1-1.2); Monocytes Percent Auto 7.3 % (2-11); Neutrophils Absolute Auto 5.3 x10*3/uL (2.0-8.3); Neutrophils Percent Auto 57.7 % (45-73); Platelet Count 374 X10*3/uL (160-400); Red Blood Count 4.66 X10*6/uL (4.60-5.80); Red Cell Distribution Width 12.1 % (11.0-16.0); White Blood Count 9.2 X10*3/uL (4.8-10.8)
[2024-08-23 13:25] LABS: Estimated Average Glucose 134 mg/dL; Hemoglobin A1C 161.9319 umol/L; Hemoglobin A1c % 6.3 % (<6.0); Total Hemoglobin (HGBA1C) 3555.4491 umol/L
[2024-08-23 13:47] LABS: Alanine Aminotransferase 33 U/L (0-40); Albumin Level 4.2 g/dL (3.5-5.0); Anion Gap 12 (12-20); Aspartate Amino Transferase 27 U/L (5-37); Bilirubin Total 0.4 mg/dL (0.0-1.0); Blood Urea Nitrogen 11 mg/dL (9-16); Calcium 9.5 mg/dL (8.4-10.2); Carbon Dioxide 26 mmol/L (22-29); Chloride 102 mmol/L (96-108); Cholesterol 236 mg/dL (<200); Estimated Glomerular Filt Rate > 60; Glucose Fasting 118 mg/dL (60-99); HDL Cholesterol 40 mg/dL (>40); LDL Cholesterol Calculated 168 mg/dL (<100); Potassium 4.5 mmol/L (3.3-5.1); Sodium 135 mmol/L (135-145); Total Protein 7.3 g/dL (6.5-8.0); Triglycerides 144 mg/dL (<150)
[2024-08-23 13:56] LABS: Thyroid Stimulating Hormone 2.09 uIU/mL (0.32-4.0)
[2024-08-23 14:10] LABS: Alkaline Phosphatase 80 U/L (39-117)
== END 2024-08-23 10:05 | disposition home or self-care (01) ==
LOC: HO.HMGCLDS 10:04
PROVIDERS: PCP Internal Medicine; Visit Provider Internal Medicine
DX: Z13.0 Encounter for screening for diseases of the blood and blood-forming organs and certain disorders involving the immune mechanism (principal); Z13.29 Encounter for screening for other suspected endocrine disorder; Z13.220 Encounter for screening for lipoid disorders; R73.9 Hyperglycemia, unspecified; Z13.9 Encounter for screening, unspecified
CPT/HCPCS: 36415; 80053; 80061; 83036; 84443; 85025

== ENCOUNTER → 2024-10-27 10:42 | Outpatient (BNVA) | payer MEDICARE, SELFPAY | PROVIDERS: PCP Internal Medicine; Visit Provider Internal Medicine | DX: E11.69 Type 2 diabetes mellitus with other specified complication (principal); E66.9 Obesity, unspecified | CPT/HCPCS: 96127; 99212 ==

== ENCOUNTER 2025-07-04 16:30 | Outpatient (AMB) | payer MEDICARE, SELFPAY ==
[2025-07-04 16:38] VITALS: BP 130/82; PULSE 74; O2SAT 95; BMI 41.9
--- NOTE | 2025-07-04 16:38 | A.OFFPC_ITS ---
Vital Signs 07/04/25 16:38 Height 5 ft 4 in Weight 244 lb 6 oz BMI 41.9 BP 130/82 Blood Pressure Location Lt brachial Position Sitting Pulse 74 Pulse Source Pulse Oximeter Pulse Oximetry (%) 95 Oxygen Delivery Method Room Air Intake Visit Reasons: BOBY Dr Thomas Flash Ranging Crewmember Required: No Accompanied by: Self / Same As Patient Allergies metformin Allergy (Mild, Verified 07/04/25 16:56) Nausea chlorthalidone Allergy (Unknown, Verified 07/04/25 16:56) Rash lisinopril Allergy (Unknown, Verified 07/04/25 16:56) Cough, hives Medication List - Last Reconciled 07/04/25 by Johnson Lozano MD alcohol swabs See Protocol pad topical TID-QID PRN amlodipine 10 mg PO DAILY blood sugar diagnostic (OneTouch Ultra Test strips) Use 1 test strip three times a day blood-glucose meter (MobileVedauch Ultra2 Meter) As directed flash glucose scanning reader ([employer] Mu[place]icio 14 Day [place]) As directed insulin lispro (Humalog KwikPen (U-100) Insulin) 5 units (0.05 mL) subcut TID lancets (LoopPayTouch UltraSoft 2 Lancet) Use 1 lancet three times a day metoprolol tartrate 100 mg PO BEDTIME pen needle, diabetic (BD Ultra-Fine Mini Pen Needle) use four times a day with insulin semaglutide (Ozempic) 1 mg subcut QWEEK Tobacco use date assessed: 07/04/25 Fall risk assessment: No Falls in past year Last assessed Fall Risk: 07/04/25 Dental Screening Dental Screen Date: 07/04/25 Did you have a dental visit in the last 12 months?: Yes Did you have a dental problem in the last 6 months where you did not have access to dental care?: No Was dental information given to patient?: Patient has dentist HPI BOBY Dr Thomas HPI Details Patient comes in today for his follow up visit - is transferring over from Dr. Thomas, who retired from the practice a few months ago States that he feels okay He denies any headaches or dizziness Denies any chest pains, no SOB No nausea/vomiting, no abdominal pain No change in bowel habits noted started Ozempic 06/08/2025 [facility] 6.6% Ozempic causing sensitivity//numbness of forearms??? PFSH Medical History Type 2 diabetes mellitus with obesity Acute respiratory failure with hypoxia Hypoxia HTN (hypertension) Surgical History History of tonsillectomy and adenoidectomy Family History Mother No problems noted. Father No problems noted. Social History Household Members: Significant Other and Children Household Members Other:: 3 Housing: House Do you presently have visiting nurse or other home services: No Alcohol intake: current Patient Tobacco Use Status: Former Tobacco user e-Cigarette/Vaping Use: Never Used Second Hand Smoke Exposure: No service: No Current occupational status: retired Cognitive needs: No Hearing needs: No Vision needs: Yes (GLASSES) Questionnaire Thrive Questionnaire Date Thrive assessed: 10/27/24 AUDIT C Alcohol Use Questionnaire (AUDIT-C) 1. How often do you have a drink containing alcohol?: Never 3. How often do you have six or more drinks on one occasion?: Never Total Score: 0 LOY-7 AMB Questionnaire LOY-7 Date LOY - 7 assessed: 10/27/24 Source: Developed by Drs. Reynold Thompson, Heidi Rogers, Jameson Fischer and colleagues, with an educational aquilino from [employer]. Physical exam (Primary Care) Vital Signs: Last Vital Signs Pulse 74 07/04/25 16:38 BP 130/82 07/04/25 16:38 Pulse Ox 95 07/04/25 16:38 Oxygen Delivery Method Room Air 07/04/25 16:38 BMI result Body Mass Index 41.9 Tobacco/Smoking Status: Tobacco use Status Tobacco use date assessed 07/04/25 07/04/25 16:41 Patient Tobacco Use Status Former Tobacco user 07/04/25 16:41 e-Cigarette/Vaping Use Never Used 07/04/25 16:41 Thrive Assessment: Date of Thrive Assessment Date Thrive assessed 10/27/24 07/04/25 16:41 Results AMB Hemoglobin A1c AMB Hemoglobin A1c 6.6 % Last Edit by JOSLYN Live on 07/04/25 17 :11 Results Reviewed Results Reviewed: Laboratory Last Values Hgb A1c (Clinic) 6.6 % (4.0-6.0) H 07/04/25 17:11 Coding Assessment & Plan Assessment & Plan Orders: Orders Complete Blood Count Auto Diff 4 Months D64.9 - Anemia, unspecified Comprehensive [place]. Panel Fast 4 Months E78.00 - Pure hypercholesterolemia, unspecified Lipid Panel 4 Months E78.00 - Pure hypercholesterolemia, unspecified Microalbumin, Random (w Creat) 4 Months E11.9 - Type 2 diabetes mellitus without complications TSH reflex Free T4 4 Months E78.00 - Pure hypercholesterolemia, unspecified Vitamin B12 and Folate 4 Months E53.8 - Deficiency of other specified B group vitamins Vitamin D 25-OH Total 4 Months E55.9 - Vitamin D deficiency, unspecified AMB Hemoglobin A1c Today Z13.9 - Encounter for screening, unspecified Hemoglobin A1c 4 Months E11.9 - Type 2 diabetes mellitus without complications UA CC w/rflx Micro + Cult 4 Months R30.0 - Dysuria
== END 2025-07-04 17:30 | disposition home or self-care (01) ==
PROVIDERS: PCP Internal Medicine; Visit Provider Internal Medicine
DX: Z13.9 Encounter for screening, unspecified (principal)

== ENCOUNTER → 2025-07-04 16:30 | Outpatient (BNVA) | payer MEDICARE, SELFPAY | PROVIDERS: PCP Internal Medicine; Visit Provider Internal Medicine | DX: E11.9 Type 2 diabetes mellitus without complications (principal); I10 Essential (primary) hypertension; E78.2 Mixed hyperlipidemia; E66.01 Morbid (severe) obesity due to excess calories; D64.9 Anemia, unspecified; E78.00 Pure hypercholesterolemia, unspecified; E53.8 Deficiency of other specified B group vitamins; R30.0 Dysuria; Z68.41 Body mass index [BMI] 40.0-44.9, adult; Z79.4 Long term (current) use of insulin | CPT/HCPCS: 83036; 96127; 99212 ==